=== PATIENT | male | born 1955 | race Caucasian/White ===

== ENCOUNTER 2020-04-03 09:54 | Outpatient (REF) | payer MEDICARE, SELFPAY ==
--- NOTE | 2020-04-03 10:06 | US_ITS ---
EXAMINATION: US ABDOMEN COMPLETE CLINICAL INFORMATION: Liver disease unspecified. Follow-up liver lesion from CT. Per patient, [facility] at [facility] 1 month ago. COMPARISON: None TECHNIQUE: Real-time imaging of the abdominal viscera. FINDINGS: Evaluation limited by patient body habitus. PANCREAS: The visualized head and body of the pancreas appears unremarkable. Remainder of the pancreas is obscured by bowel gas. ABDOMINAL AORTA: The proximal, mid, and distal segments are normal in caliber. INFERIOR VENA CAVA: Visualized portions are normal. LIVER: There is an anechoic avascular lesion in the right anterolateral liver dome measuring 1.2 x 1.2 x 1.4 cm. Normal parenchymal echogenicity. There is no intrahepatic biliary duct dilatation seen. GALLBLADDER: Normal. The gallbladder is physiologically distended without evidence of stones, sludge, polyps, wall thickening or pericholecystic fluid. COMMON BILE DUCT: Normal in caliber measuring 0.4 cm in diameter. RIGHT KIDNEY: Multiple renal cysts. Lower pole 2 cm cyst; Lower pole 1.5 cm cyst; Midpole 1.9 cm cyst. These are anechoic in nature. No hydronephrosis. No renal calculi. The kidney measures 13.3 cm in maximum dimension. LEFT KIDNEY: Upper pole 2.2 cm anechoic avascular cyst. Upper pole 1.6 cm anechoic avascular cyst. No hydronephrosis. No renal calculi . The kidney measures 13.2 cm in maximum dimension. SPLEEN: Normal. The spleen measures 13.4 cm in maximum dimension. FREE FLUID: None. US/US abdomen complete IMPRESSION: 1. Anechoic avascular cystic-appearing lesion in the right lobe measuring 1.2 x 1.2 x 1.4 cm. Recommend correlation to prior CT. Recommend clinical correlation and management. Confirmation of the cystic nature can be obtained with MRI. Alternately, recommend follow-up ultrasound for reassessment. 2. Multiple bilateral renal cysts as detailed above. No hydronephrosis. No calculi seen.
== END 2020-04-03 09:55 | disposition home or self-care (01) ==
LOC: HO.HMGCX 09:54
PROVIDERS: PCP Internal Medicine; Visit Provider Internal Medicine
DX: K76.9 Liver disease, unspecified (principal)
CPT/HCPCS: 76700

== ENCOUNTER 2020-04-12 08:21 | Outpatient (REF) | payer MEDICARE, SELFPAY ==
--- NOTE | 2020-04-12 08:43 | MR_ITS ---
EXAMINATION: MR ABDOMEN WITHOUT AND WITH CONTRAST CLINICAL INFORMATION: Followup liver lesion. COMPARISON: Previous abdominal ultrasound March 2020 TECHNIQUE: MR abdomen was performed without and with use of 10 mL intravenous Gadavist gadolinium contrast. Postcontrast images are performed in multiphase dynamic sequences. Imaging was performed in 3 planes. FINDINGS: LUNG BASES: The visualized lung bases are unremarkable. LIVER, GALLBLADDER, AND BILIARY TREE: The liver is normal in size, smooth in contour, and normal in signal. There are innumerable liver lesions that are dark on T1, bright on T2 sequences and demonstrate no evidence of enhancement compatible with simple-appearing liver cysts, the largest measuring 1 cm in the medial segment of the left lobe of the liver. There is a 1.5 x 1.8 x 1.5 cm lesion high in the dome of the right lobe. This is high signal on T1- and T2-weighted sequences and demonstrates no evidence of enhancement. This is suggestive of a complex proteinaceous or hemorrhagic cyst. This corresponds to lesion seen by ultrasound. The gallbladder is unremarkable. There is no biliary duct dilatation. PANCREAS: Unremarkable. SPLEEN: Normal. ADRENAL GLANDS: Normal. KIDNEYS AND URETERS: There are bilateral renal cysts. The kidneys are otherwise unremarkable. GASTROINTESTINAL TRACT: There is diverticulosis of the colon. No ascites or fluid collection. ABDOMINAL WALL: There is an upper midline or subxiphoid hernia containing fat. There is a small umbilical hernia containing fat. LYMPH NODES: No lymphadenopathy. VASCULAR: Unremarkable. OSSEOUS STRUCTURES: There are degenerative changes of the spine. There are median sternotomy wires. MR/MR abdomen wo/w con IMPRESSION: Multiple simple liver cysts. 1.5 x 1.8 x 1.5 cm probable complex proteinaceous or hemorrhagic cyst high in the dome of the right lobe of the liver corresponding to lesion seen by ultrasound. Followup imaging in 6 months to ensure stability recommended. Bilateral renal cysts. Diverticulosis of the colon. Upper midline ventral or subxiphoid hernia containing fat.
[2020-04-12 09:21] LABS: Blood Urea Nitrogen 20 mg/dL (9-16); Estimated Glomerular Filt Rate > 60
== END 2020-04-12 08:22 | disposition home or self-care (01) ==
LOC: HO.MRI 08:21
PROVIDERS: PCP Internal Medicine; Visit Provider Internal Medicine
DX: K76.9 Liver disease, unspecified (principal); E78.5 Hyperlipidemia, unspecified; R73.9 Hyperglycemia, unspecified; I10 Essential (primary) hypertension
CPT/HCPCS: 74183; 82565; 84520; A9585

== ENCOUNTER → 2022-04-21 16:07 | Outpatient (REF) | payer MEDICARE, SELFPAY | LOC: HO.SL 16:07 | PROVIDERS: PCP Internal Medicine; Visit Provider Internal Medicine | DX: G47.33 Obstructive sleep apnea (adult) (pediatric) (principal) | CPT/HCPCS: 95806 ==

== ENCOUNTER 2022-12-17 08:21 | Outpatient (AMB) | payer MEDICARE, SELFPAY ==
--- NOTE | 2022-12-17 08:31 | A.OFFPC_ITS ---
Vital Signs 12/17/22 08:32 Height 5 ft 7 in Weight 285 lb BMI 44.6 BP 136/74 Blood Pressure Location Lt brachial Position Sitting Pulse 52 Pulse Source Pulse Oximeter Pulse Oximetry (%) 97 Oxygen Delivery Method Room Air Intake Visit Reasons: 4 month follow up Intake Note: Pt is here today for 4 months follow up visit. Allergies No Known Allergies Allergy (Verified 12/17/22 08:33) Tobacco use date assessed: 12/17/22 Fall risk assessment: No Falls in past year Last assessed Fall Risk: 12/17/22 Dental Screening Dental Screen Date: 12/17/22 Did you have a dental visit in the last 12 months?: No Did you have a dental problem in the last 6 months where you did not have access to dental care?: No Was dental information given to patient?: Patient declined HPI 4 month follow up HPI Details Pt presents for f/u HTN, hyperlipid stable for meds. [facility] Medical History Annual physical exam Ascending aorta dilation HTN (hypertension) Hyperglycemia Hyperlipidemia Liver lesion, right lobe Lower extremity edema Normal colonoscopy Obesity DAQUAN on CPAP Osteoarthritis of right knee Surgical History H/O colonoscopy No pertinent past surgical history Status post aortic valve replacement with bioprosthetic valve Family History Father Kidney disease Heart problem Diabetes mellitus Mother No problems noted. Social History Housing: House Alcohol intake: current Alcohol intake frequency: a few times a week Patient Tobacco Use Status: Never used Tobacco e-Cigarette/Vaping Use: Never Used service: No Current occupational status: employed Cognitive needs: No Hearing needs: No Vision needs: Yes Questionnaire Thrive Questionnaire Date Thrive assessed: 05/01/22 AUDIT C Alcohol Use Questionnaire (AUDIT-C) 1. How often do you have a drink containing alcohol?: 2-3 times a week 2. How many drinks containing alcohol do you have on a typical day when you are drinking?: 1 or 2 3. How often do you have six or more drinks on one occasion?: Never Total Score: 3 CATALINA-7 AMB Questionnaire CATALINA-7 Date CATALINA - 7 assessed: 05/01/22 Source: Developed by Drs. Chao Rodriguez, Deanna Tamayo, Luis Angel Lehman and colleagues, with an educational karla from [employer]. Review of Systems Const All systems reviewed & are unremarkable except as noted in HPI and below Reports no additional complaints Eyes Reports no additional complaints ENT Reports no additional complaints Card Reports no additional complaints Resp Reports no additional complaints GI Reports no additional complaints Reports no additional complaints Physical exam (Primary Care) Vital Signs: Last Vital Signs Pulse 52 12/17/22 08:32 BP 136/74 12/17/22 08:32 Pulse Ox 97 12/17/22 08:32 Oxygen Delivery Method Room Air 12/17/22 08:32 BMI result Body Mass Index 44.6 Tobacco/Smoking Status: Tobacco use Status Tobacco use date assessed 12/17/22 12/17/22 08:37 Patient Tobacco Use Status Never used Tobacco 12/17/22 08:37 e-Cigarette/Vaping Use Never Used 12/17/22 08:37 Thrive Assessment: Date of Thrive Assessment Date Thrive assessed 05/01/22 12/17/22 08:37 Const General: no acute distress HENMT Head: Yes normal to inspection Ears: hearing grossly normal bilaterally Eyes General: appearance normal, both eyes and all related structures Neck Neck: Yes no lymphadenopathy and Yes supple Cardio Rhythm: regular rhythm Heart sounds: S1 normal heart sound present and S2 normal heart sound present GI Inspection: Yes normal to inspection Palpation (GI): Soft to palpation Percussion: Yes normal to percussion Auscultation: normal bowel sounds Assessment and Plan Assessment & Plan (1) Anemia: Code(s): D64.9 - Anemia, unspecified Plan: For slight anemia iron studies and B12 level will be checked today. Patient is due for colonoscopy next year (2) Hyperlipidemia: Code(s): E78.5 - Hyperlipidemia, unspecified Plan: Continue statin (3) Hyperglycemia: Code(s): R73.9 - Hyperglycemia, unspecified Plan: Continue ADA diet increase physical activity weight loss discussed with the patient (4) HTN (hypertension): Code(s): I10 - Essential (primary) hypertension Plan: Continue current medications follow-up in 6 months Orders: Orders Vitamin B12 and Folate Today D64.9 - Anemia, unspecified IRON PROFILE Today D64.9 - Anemia, unspecified Comprehensive [place]. Panel Fast 6 Months D64.9 - Anemia, unspecified, E78.5 - Hyperlipidemia, unspecified, I10 - Essential (primary) hypertension, R73.9 - Hyperglycemia, unspecified Lipid Panel 6 Months D64.9 - Anemia, unspecified, E78.5 - Hyperlipidemia, unspecified, I10 - Essential (primary) hypertension, R73.9 - Hyperglycemia, unspecified Complete Blood Count Auto Diff 6 Months D64.9 - Anemia, unspecified, E78.5 - Hyperlipidemia, unspecified, I10 - Essential (primary) hypertension, R73.9 - Hyp erglycemia, unspecified Complete Blood Count Man Dif Today D64.9 - Anemia, unspecified Coding Level of Care Code Est Pt Level 4 (92669) Diagnoses Anemia D64.9 Hyperlipidemia E78.5 Hyperglycemia R73.9 HTN (hypertension) I10
[2022-12-17 08:32] VITALS: BP 136/74; PULSE 52; O2SAT 97; BMI 44.6
== END 2022-12-17 09:56 | disposition home or self-care (01) ==
PROVIDERS: Visit Provider Internal Medicine
DX: D64.9 Anemia, unspecified (principal); E78.5 Hyperlipidemia, unspecified; R73.9 Hyperglycemia, unspecified; I10 Essential (primary) hypertension
CPT/HCPCS: 99214

== ENCOUNTER 2022-12-17 09:14 | Outpatient (REF) | payer MEDICARE, SELFPAY ==
[2022-12-17 12:08] LABS: Baso%MD 0.4 %; Hematocrit 41.8 % (42.0-52.0); Hemoglobin 14.2 g/dl (14.0-18.0); Lymph%MD 36.6 %; Mean Corpuscular Hemoglobin 30.7 pg (27.0-33.0); Mean Corpuscular Volume 90.3 fL (80.0-98.0); Mean Platelet Volume 10.6 fL (9.4-12.4); Mono%MD 6.5 %; Neut%MD 54.5 %; Platelet Count 167 X10*3/uL (160-400); Red Blood Count 4.63 X10*6/uL (4.60-5.80); Red Cell Distribution Width 12.8 % (11.0-16.0); White Blood Count 5.1 X10*3/uL (4.8-10.8)
[2022-12-17 12:09] LABS: Hematocrit 41.8 % (42.0-52.0); Hemoglobin 14.3 g/dl (14.0-18.0); Mean Corpuscular HGB Conc 34.2 g/dl (31.0-36.0); Mean Corpuscular Hemoglobin 31.1 pg (27.0-33.0); Mean Corpuscular Volume 90.9 fL (80.0-98.0); Mean Platelet Volume 10.8 fL (9.4-12.4); Platelet Count 164 X10*3/uL (160-400); Red Cell Distribution Width 12.9 % (11.0-16.0); White Blood Count 5.2 X10*3/uL (4.8-10.8)
[2022-12-17 12:59] LABS: Alanine Aminotransferase 12 U/L (0-40); Albumin Level 4.3 g/dL (3.5-5.0); Alkaline Phosphatase 61 U/L (39-117); Anion Gap 15 (12-20); Aspartate Amino Transferase 18 U/L (5-37); Bilirubin Total 0.7 mg/dL (0.0-1.0); Blood Urea Nitrogen 23 mg/dL (9-16); Calcium 9.2 mg/dL (8.4-10.2); Carbon Dioxide 24 mmol/L (22-29); Chloride 105 mmol/L (96-108); Cholesterol 150 mg/dL; Estimated Glomerular Filt Rate > 60; Glucose Fasting 105 mg/dL (60-99); HDL Cholesterol 51 mg/dL; Iron 100 mcg/dL (45-160); LDL Cholesterol Calculated 88 mg/dl; Percent Iron Saturation 34 % (15-50); Potassium 4.7 mmol/L (3.3-5.1); Sodium 139 mmol/L (135-145); Total Iron Binding Capacity 296 mcg/dL (228-428); Total Protein 7.3 g/dL (6.5-8.0); Triglycerides 56 mg/dL; Unsaturated Iron Binding 196 ug/dL
[2022-12-17 13:02] LABS: Prostate Specific Antigen Scr 1.58 ng/mL (<0.05-4.0)
[2022-12-17 13:03] LABS: Folate 13.6 ng/mL (> or = 4.0); Vitamin B12 602 pg/mL (200-900)
[2022-12-17 13:42] LABS: Band Neutrophils Percent 0 % (3-5); Basophils Abs Manual 0.1 X10*3/uL (0.0-0.2); Basophils Percent Manual 1 % (0-2); Eosinophils Absolute Manual 0.3 X10*3/uL (0.0-0.4); Eosinophils Percent Manual 5 % (0-4); Lymphocytes Absolute Manual 1.5 X10*3/uL (1.2-4.9); Lymphocytes Percent Manual 30 % (20-40); Monocytes Absolute Manual 0.2 X10*3/uL (0.1-1.2); Monocytes Percent Manual 4 % (2-11); Neutrophils Absolute Manual 3.1 X10*3/uL (2.0-8.3); Neutrophils Percent Manual 60 % (45-73); Platelet Estimate NORMAL (NORMAL); Platelet Morphology Comment NORMAL; RBC Morphology NORMAL
== END 2022-12-17 09:15 | disposition home or self-care (01) ==
LOC: HO.HMGCLDS 09:14
PROVIDERS: PCP Internal Medicine; Visit Provider Internal Medicine
DX: Z12.5 Encounter for screening for malignant neoplasm of prostate (principal); I10 Essential (primary) hypertension; R73.9 Hyperglycemia, unspecified; D64.9 Anemia, unspecified; E78.5 Hyperlipidemia, unspecified
CPT/HCPCS: 36415; 80053; 80061; 82607; 82746; 83540; 84153; 85007; 85025; 85027

== ENCOUNTER 2023-06-21 08:54 | Outpatient (AMB) | payer MEDICARE, SELFPAY ==
[2023-06-21 08:55] VITALS: BP 120/76; PULSE 58; O2SAT 97; BMI 44.8
--- NOTE | 2023-06-21 08:55 | MHC.PC.OV ---
Vital Signs 06/21/23 08:55 Height 5 ft 7 in Weight 286 lb BMI 44.8 BP 120/76 Blood Pressure Location Lt brachial Position Sitting Pulse 58 Pulse Source Pulse Oximeter Pulse Oximetry (%) 97 Oxygen Delivery Method Room Air Intake Visit Reasons: 6 Month follow up Intake Note: Pt is here today for 6 months follow up visit on labs. Allergies carvedilol [From Coreg] Adverse Reaction (Intermediate, Verified 06/21/23 09:38) bradycardia Tobacco use date assessed: 06/21/23 Fall risk assessment: No Falls in past year Last assessed Fall Risk: 06/21/23 Dental Screening Dental Screen Date: 06/21/23 Did you have a dental visit in the last 12 months?: No Did you have a dental problem in the last 6 months where you did not have access to dental care?: No Was dental information given to patient?: Patient declined HPI 6 Month follow up HPI Details Patient presents for the follow-up of hypertension hyperlipidemia obstructive sleep apnea on CPAP patient has stopped taking carvedilol as advised by avionics mechanic because of bradycardia. Patient denies palpitations dizziness loss of consciousness. [facility] Medical History Annual physical exam Osteoarthritis of right knee Ascending aorta dilation Normal colonoscopy Hyperglycemia HTN (hypertension) Liver lesion, right lobe DAQUAN on CPAP Lower extremity edema Obesity Hyperlipidemia Surgical History H/O colonoscopy Status post aortic valve replacement with bioprosthetic valve No pertinent past surgical history Family History Father Kidney disease Heart problem Diabetes mellitus Mother No problems noted. Social History Housing: House Alcohol intake: current Alcohol intake frequency: a few times a week Patient Tobacco Use Status: Never used Tobacco e-Cigarette/Vaping Use: Never Used service: No Current occupational status: employed Cognitive needs: No Hearing needs: No Vision needs: Yes Questionnaire Thrive Questionnaire Date Thrive assessed: 05/01/22 AUDIT C Alcohol Use Questionnaire (AUDIT-C) 1. How often do you have a drink containing alcohol?: 2-3 times a week 2. How many drinks containing alcohol do you have on a typical day when you are drinking?: 1 or 2 3. How often do you have six or more drinks on one occasion?: Never Total Score: 3 CATALINA-7 AMB Questionnaire CATALINA-7 Date CATALINA - 7 assessed: 05/01/22 Feeling nervous, anxious, or on edge: 1 = Several days Not being able to stop or control worryin = Not at all Worrying too much about different things: 1 = Several days Trouble relaxin = Not at all Being so restless that it is hard to sit still: 0 = Not at all Becoming easily annoyed or irritable: 1 = Several days Feeling afraid as if something awful might happen: 0 = Not at all Total CATALINA-7 score (0-4 normal; 5-9 mild; 10-14 moderate; 15-21 severe): 3 Source: Developed by Drs. Chao Rodriguez, Deanna Tamayo, Luis Angel Lehman and colleagues, with an educational karla from [employer]. Review of Systems Const All systems reviewed & are unremarkable except as noted in HPI and below Reports no additional complaints Eyes Reports no additional complaints ENT Reports no additional complaints Card Reports no additional complaints Resp Reports no additional complaints GI Reports no additional complaints Reports no additional complaints Physical exam (Primary Care) Vital Signs: Last Vital Signs Pulse 58 06/21/23 08:55 BP 140/76 H 06/21/23 08:55 Pulse Ox 97 06/21/23 08:55 Oxygen Delivery Method Room Air 06/21/23 08:55 BMI result Body Mass Index 44.8 Tobacco/Smoking Status: Tobacco use Status Tobacco use date assessed 06/21/23 06/21/23 09:06 Patient Tobacco Use Status Never used Tobacco 06/21/23 09:06 e-Cigarette/Vaping Use Never Used 06/21/23 08:55 Thrive Assessment: Date of Thrive Assessment Date Thrive assessed 05/01/22 06/21/23 08:55 Const General: no acute distress HENMT Head: Yes normal to inspection Ears: hearing grossly normal bilaterally Face and sinus: Yes normal facial exam Throat: Yes posterior oropharynx normal Eyes General: appearance normal, both eyes and all related structures Neck Neck: Yes no lymphadenopathy and Yes supple Resp Effort & Inspection: normal respiratory effort Cardio Rhythm: regular rhythm Heart sounds: S1 normal heart sound present and S2 normal heart sound present GI Inspection: Yes normal to inspection Palpation (GI): Soft to palpation Percussion: Yes normal to percussion Auscultation: normal bowel sounds Assessment and Plan Assessment & Plan (1) DAQUAN on CPAP: Comment: Sleep study showed moderate to severe obstructive sleep apnea 04/14. Code(s): G47.33 - Obstructive sleep apnea (adult) (pediatric); Z99.89 - Dependence on other enabling machines and devices (2) Ascending aorta dilation: Comment: 4.0 cm, Echo 07/2019, f/u PVC Code(s): I77.810 - Thoracic aortic ectasia (3) Hyperlipidemia: Code(s): E78.5 - Hyperlipidemia, unspecified Plan: Continue statin (4) HTN (hypertension): Code(s): I10 - Essential (primary) hypertension Plan: Continue Valsartan, increase exercise weight loss discussed with the patient follow-up in 3 months Coding Level of Care Code Est Pt Level 4 (21672) Diagnoses DAQUAN on CPAP G47.33; Z99.89 Ascending aorta dilation I77.810 Hyperlipidemia E78.5 HTN (hypertension) I10
== END 2023-06-21 09:44 | disposition home or self-care (01) ==
PROVIDERS: PCP Internal Medicine; Visit Provider Internal Medicine
DX: G47.33 Obstructive sleep apnea (adult) (pediatric) (principal); Z99.89 Dependence on other enabling machines and devices; I77.810 Thoracic aortic ectasia; E78.5 Hyperlipidemia, unspecified; I10 Essential (primary) hypertension
CPT/HCPCS: 99214

== ENCOUNTER 2023-07-05 08:48 | Outpatient (AMB) | payer MEDICARE, SELFPAY ==
--- NOTE | 2023-07-05 08:51 | A.OFFVIS_ITS ---
Intake Vital Signs 07/05/23 08:54 Height 5 ft 7 in Weight 285 lb BMI 44.6 BP 142/74 H Blood Pressure Location Lt brachial Position Sitting Pulse 57 Pulse Source Pulse Oximeter Pulse Oximetry (%) 98 Oxygen Delivery Method Room Air Intake Visit Reasons: swv Intake Note: Pt is here today for AWV. Allergies carvedilol [From Coreg] Adverse Reaction (Intermediate, Verified 07/05/23 08:59) bradycardia Medication List - Last Reconciled 07/05/23 by Adia Medina MD atorvastatin 40 mg PO BEDTIME CPAP (CPAP Machine/Device) auto pap 6-16 cm CPAP (CPAP Machine/Device) auto pap with presure 6-16 cm flu vacc [id number] 6mos up(PF) mL IM furosemide 40 mg PO QAM [id number] mcg (Centrum Minis Men 50 Plus) tabs PO omega 5-amt-guo-fish oil 1,200 (144-216) mg (Fish Oil) caps PO omeprazole 20 mg PO QAM scopolamine base 1 patch transdermal Q3D PRN sertraline 75 mg (1.5 x 50 mg) PO DAILY valsartan 160 mg PO DAILY HPI swv HPI Details Patient presents for wellness visitInitiated the conversation about Advanced Directives. Advanced Directives help? patients prepare for current and future decisions about their medical treatment? and place of care. Discussed with patient that it is a process where a patients? current condition and prognosis are reviewed, their wishes for information? regarding their illness are elicited, and likely medical dilemmas are presented? and options discussed. The form can be amended as needed, reviewed yearly and? make changes as needed IPPE/AWV ? year old presents? for her ? Annual? Wellness Visit, initial visit.? Medical / Social History Reviewed? Past Medical History ?Yes? . ? [place]? of Care / Care Team list updated ?Yes . ? Surgical/Hospitalization? History ?Yes . ? Current Medications? (including OTC and supplements) ?Yes . ? Family History ?Yes? . ? Tobacco? Control form ?Yes . ? AUDIT-C (Alcohol use) form? ?Yes . ? Illicit drug use in Social? History ?Yes . ? Current diagnosis of? depression? ?No ? Appropriate PHQ2/PHQ9? completed ?Yes . ? Data entered by ?Medical? Hotel Reservation Agent and reviewed by provider ? Fall Risk ? Fall? History? Have you had any falls with? injury in the past year? ?No . ? Have you had two or more? falls in the past year? ?No . ? Fall Risk Assessment: ?No? falls in the past year . ? HRA filled out by? the patient, reviewed by Provider and scanned. ? IPPE/AWV ? Balance? [place]? ?Yes . ? Tandem? walk ?Yes . ? Walk and? Turn ?Yes . ? Rise from? sit to stand ?Yes . ?Vision? Corrective? lens ?Yes ? Vision? screen ? Up-to-date, has an appointment [] for vision? screening and glaucoma screening ?Hearing? Whisper? test ?pass .? Initiated the conversation about Advanced Directives. Advanced Directives help? patients prepare for current and future decisions about their medical treatment? and place of care. Discussed with patient that it is a process where a patients? current condition and prognosis are reviewed, their wishes for information? regarding their illness are elicited, and likely medical dilemmas are presented? and options discussed. The form can be amended as needed, reviewed yearly and? make changes as needed Written? Plan?Completed. See Patient? Documents. [facility] Medical History Annual physical exam Osteoarthritis of right knee Ascending aorta dilation Normal colonoscopy Hyperglycemia HTN (hypertension) Liver lesion, right lobe DAQUAN on CPAP Lower extremity edema Obesity Hyperlipidemia Surgical History H/O colonoscopy Status post aortic valve replacement with bioprosthetic valve No pertinent past surgical history Family History Father Kidney disease Heart problem Diabetes mellitus Mother No problems noted. Social History Housing: House Alcohol intake: current Alcohol intake frequency: a few times a week Patient Tobacco Use Status: Never used Tobacco e-Cigarette/Vaping Use: Never Used service: No Current occupational status: employed Cognitive needs: No Hearing needs: No Vision needs: Yes Questionnaire Medicare Wellness Checkup [age] What gender do you identify with?: male During the past 4 weeks, how much have you been bothered by emotional problems such as feeling anxious, depressed, irritable, sad or downhearted, and blue?: not at all During the past 4 weeks, has your physical & emotional health limited your social activities with family, friends, neighbors, or groups?: not at all During the past 4 weeks, how much bodily pain have you generally had?: very mild pain During the past 4 weeks, was someone available to help you if you needed & wanted help?: yes, as much as I wanted During the past 4 weeks, what was the hardest physical activity you could do for at least 2 minutes?: moderate Can you get to places out of walking distance without help? (For eg., can you travel alone on buses, taxis or drive your car?): Yes Can you go shopping for groceries or clothes without someone's help?: Yes Can you prepare your own meals?: Yes Can you do your housework without help?: Yes Because of any health problems, do you need the help of another person with your personal care needs such as eating, bathing, dressing or getting around the h ouse?: No Can you handle your own money without help?: Yes During the past 4 weeks, how would you rate your health in general?: good During the past 4 weeks how have things been going for you?: pretty well Are you having difficulties driving your car?: no Do you always fasten your seat belt when you are in a car?: yes, usually During past 4 weeks, have you been bothered by the following: never: Sexual problems?, Trouble eating well?, Teeth or denture problems? and Problems using the telephone? and seldom: Falling or dizzy when standing up and Tiredness or fatigue? Have you fallen 2 or more times in the past year?: No Are you afraid of falling?: No Are you a smoker?: no During the past 4 weeks, how many drinks of wine, beer, or other alcoholic beverages did you have?: 2-5 drinks per week Do you exercise for about 20 minutes 3 or more times a week?: yes, most of the time Have you been given information to help with the following?: no: Hazards in your house that might hurt you? and no: Keeping track of your medications? How often do you have trouble taking medicines the way you have been told to take them?: I always take medicine as prescribed How confident are you that you can control & manage most of your health problems?: very confident What is your race?: White Mini Mental State Exam (MMSE) Orientation What is the (year) (season) (date) (day) (month)?: year, season, date, day and month Where are we (state) (county) (town or city) (hospital) (floor)?: state, county, town or city, hospital/clinic and floor Registration Name of 3 unrelated objects clearly and slowly, then ask patient to repeat all 3 of them. (1st repeat determines score. Make sure they can repeat all three): object 1, object 2 and object 3 Attention & Calculation (CHOOSE ONE) Spell WORLD backwards (DLROW): 5 letters Recall Ask patient to repeat the 3 items from question #3.: object 1, object 2 and object 3 Language Show patient a wristwatch & ask what it is. Repeat for pencil.: watch and pencil Ask the patient to repeat the phrase 'No ifs, ands, or buts' after you.: correct Ask the patient to 'take a piece of paper with their right hand' 'fold paper in half' 'place paper on floor': take paper in right hand, fold paper in half and place paper on floor Print the sentence 'CLOSE YOUR EYES' on a piece. If patient actually closes eyes then score.: followed written direction Give patient a blank piece of paper & ask to write a sentence. Score if it contains a noun & verb.: sentence contains subject and verb Score Score: 29 Activity of Daily Living Bathing - sponge bath, tub bath or shower: receives no assistance (gets in/out by self, if usual bathing means Dressing - getting clothes from closets & drawers, including inner/outer garments & fasteners.: gets clothes & gets completely dressed without help Toileting - going to the 'toilet room' for urine/bowel elimination & cleaning self/arranging clothes: goes to toilet room, cleans self, arranges clothes without help Transfer: moves in & out of bed and chair without help (may use support object) Continence: controls urination/bowel movements completely by self Feeding: feeds self without help Total Score: 0 Information obtained from: patient Using telephone: independent Traveling: independent Shopping: independent Preparing meals: independent Housework: independent Taking medicine: independent Managing money: independent PHQ-9 Over the last 2 weeks, how often have you been bothered by any of the following problems? 1. Little interest or pleasure in doing things: not at all 2. Feeling down, depressed, or hopeless: not at all 3. Trouble falling or staying asleep, or sleeping too much: not at all 4. Feeling tired or having little energy: several days 5. Poor appetite or overeating: not at all 6. Feeling bad about yourself - or that you are a failure or have let yourself or your family down: not at all 7. Trouble concentrating on things, such as reading the newspaper or watching television: not at all 8. Moving or speaking so slowly that other people could have noticed. Or the opposite - being so fidgety or restless that you have been moving around a lot more than usual: not at all 9. Thoughts that you would be better off or of hurting yourself in some way: not at all Total score: 1 Depression Screening Interpretation: Negative Depression Screening Done: Yes Source: Developed by Drs. Chao Rodriguez, Deanna Tamayo, Luis Angel Lehman and colleagues, with an educational karla from [employer]. Review of Systems Const All systems reviewed & are unremarkable except as noted in HPI and below Reports no additional complaints Eyes Reports no additional complaints ENT Reports no additional complaints Card Reports no additional complaints Resp Reports no additional complaints GI Reports no additional complaints Reports no additional complaints Musc Reports no additional complaints Physical Exam Vital Signs: Last Vital Signs Pulse 57 07/05/23 08:54 BP 142/74 H 07/05/23 08:54 Pulse Ox 98 07/05/23 08:54 Oxygen Delivery Method Room Air 07/05/23 08:54 BMI result Body Mass Index 44.6 Const General: no acute distress HEENT Head: Yes normal to inspection Ears: hearing grossly normal bilaterally Neck Neck: Yes no lymphadenopathy and Yes supple Resp Effort & Inspection: normal respiratory effort Auscultation: clear to auscultation bilaterally Cardio Rhythm: regular rhythm Heart sounds: S1 normal heart sound present and S2 normal heart sound present GI Inspection: Yes normal to inspection Palpation (GI): Soft to palpation Percussion: Yes normal to percussion Extrem General: Yes no clubbing, cyanosis or edema Assessment & Plan Assessment & Plan (1) HTN (hypertension): Code(s): I10 - Essential (primary) hypertension Plan: Add 80 mg of valsartan to 160 mg. Check BMP 1 week after starting the medication. Patient is going to [place] tomorrow for 1 week and will start the medication after he return. Low-sodium diet and regular physical activity discussed with the pt (2) DAQUAN on CPAP: Comment: Sleep study showed moderate to severe obstructive sleep apnea 04/14. Code(s): G47.33 - Obstructive sleep apnea (adult) (pediatric); Z99.89 - Dependence on other enabling machines and devices Plan: Continue Cpap (3) Normal colonoscopy: Comment: 05/2018 recheck 5 yrs, hx of polyps, Plan: Due for colonoscopy next May (4) Hyperlipidemia: Code(s): E78.5 - Hyperlipidemia, unspecified Plan: Continue statin (5) Annual physical exam: Code(s): Z00.00 - Encounter for general adult medical examination without abnormal findings Plan: Well-balanced diet regular physical activity weight loss discussed with the patient. Follow-up in 6 weeks Orders: Orders Basic Metabolic Panel 07/29/23 I10 - Essential (primary) hypertension Medications: New valsartan take with Valsartan 160 mg 80 mg PO DAILY 90 tabs 0RF Quality Reporting (2019) Depression/Bipolar (159/160/161/177) PHQ-9: Total score: 1 Coding Level of Care Code Medicare Subsequent (G0439) Diagnoses HTN (hypertension) I10 DAQUAN on CPAP G47.33; Z99.89 Normal colonoscopy Hyperlipidemia E78.5 Annual physical exam Z00.00 CPT Codes Advance Care Planning - Time spent: 1-15 minutes, not on file ([id number]) Advance Care Planning Advance Care Planning discussion: Exists, not on file Forms completed: Health Care Proxy Time spent: 1-15 minutes, not on file
[2023-07-05 08:54] VITALS: BP 142/74; PULSE 57; O2SAT 98; BMI 44.6
== END 2023-07-05 09:35 | disposition home or self-care (01) ==
PROVIDERS: PCP Internal Medicine; Visit Provider Internal Medicine
DX: I10 Essential (primary) hypertension (principal); G47.33 Obstructive sleep apnea (adult) (pediatric); Z99.89 Dependence on other enabling machines and devices; E78.5 Hyperlipidemia, unspecified; Z00.00 Encounter for general adult medical examination without abnormal findings
CPT/HCPCS: 1124F; G0439

== ENCOUNTER 2023-08-16 12:29 | Outpatient (AMB) | payer MEDICARE, SELFPAY ==
[2023-08-16 12:31] VITALS: BP 120/76; PULSE 55; O2SAT 97; BMI 44.0
--- NOTE | 2023-08-16 12:31 | A.OFFPC_ITS ---
Vital Signs 08/16/23 12:31 Height 5 ft 7 in Weight 281 lb BMI 44.0 BP 120/76 Blood Pressure Location Lt brachial Position Sitting Pulse 55 Pulse Source Pulse Oximeter Pulse Oximetry (%) 97 Oxygen Delivery Method Room Air Intake Visit Reasons: 6WK F/U Intake Note: Pt is here today for a 6 weeks follow up visit. Allergies carvedilol [From Coreg] Adverse Reaction (Intermediate, Verified 08/16/23 12:35) bradycardia Tobacco use date assessed: 08/16/23 Fall risk assessment: No Falls in past year Last assessed Fall Risk: 08/16/23 HPI 6WK F/U HPI Details Pt presents for HTN, hyperlipid, stable on meds. [facility] Medical History Annual physical exam Osteoarthritis of right knee Ascending aorta dilation Normal colonoscopy Hyperglycemia HTN (hypertension) Liver lesion, right lobe DAQUAN on CPAP Lower extremity edema Obesity Hyperlipidemia Surgical History H/O colonoscopy Status post aortic valve replacement with bioprosthetic valve No pertinent past surgical history Family History Father Kidney disease Heart problem Diabetes mellitus Mother No problems noted. Social History Housing: House Alcohol intake: current Alcohol intake frequency: a few times a week Patient Tobacco Use Status: Never used Tobacco e-Cigarette/Vaping Use: Never Used service: No Current occupational status: employed Cognitive needs: No Hearing needs: No Vision needs: Yes Questionnaire Thrive Questionnaire Date Thrive assessed: 05/01/22 CATALINA-7 AMB Questionnaire CATALINA-7 Date CATALINA - 7 assessed: 05/01/22 Source: Developed by Drs. Chao Rodriguez, Deanna Tamayo, Luis Angel Lehman and colleagues, with an educational karla from [employer]. Review of Systems Const All systems reviewed & are unremarkable except as noted in HPI and below Reports no additional complaints Eyes Reports no additional complaints ENT Reports no additional complaints Card Reports no additional complaints Resp Reports no additional complaints GI Reports no additional complaints Reports no additional complaints Physical exam (Primary Care) Vital Signs: Last Vital Signs Pulse 49 L 08/16/23 12:31 BP 120/76 08/16/23 12:31 Pulse Ox 97 08/16/23 12:31 Oxygen Delivery Method Room Air 08/16/23 12:31 BMI result Body Mass Index 44.0 Tobacco/Smoking Status: Tobacco use Status Tobacco use date assessed 08/16/23 08/16/23 12:38 Patient Tobacco Use Status Never used Tobacco 08/16/23 12:38 e-Cigarette/Vaping Use Never Used 08/16/23 12:33 Thrive Assessment: Date of Thrive Assessment Date Thrive assessed 05/01/22 08/16/23 12:33 Const General: no acute distress HENMT Head: Yes normal to inspection Mouth: Normal oral and palatal mucosa present Eyes General: appearance normal, both eyes and all related structures Neck Neck: Yes supple Resp Effort & Inspection: normal respiratory effort Auscultation: clear to auscultation bilaterally Cardio Rhythm: regular rhythm Heart sounds: S1 normal heart sound present and S2 normal heart sound present Assessment and Plan Assessment & Plan (1) HTN (hypertension): Code(s): I10 - Essential (primary) hypertension Plan: cont meds, f/u 6 months (2) Hyperglycemia: Code(s): R73.9 - Hyperglycemia, unspecified Plan: ADA diet, regular exercise, weight loss discussed (3) Hyperlipidemia: Code(s): E78.5 - Hyperlipidemia, unspecified Plan: cont statin Orders: Orders Comprehensive [place]. Panel Fast 6 Months E78.5 - Hyperlipidemia, unspecified, I10 - Essential (primary) hypertension, R73.9 - Hyperglycemia, unspecified Lipid Panel 6 Months E78.5 - Hyperlipidemia, unspecified, I10 - Essential (primary) hypertension, R73.9 - Hyperglycemia, unspecified Complete Blood Count Auto Diff 6 Months E78.5 - Hyperlipidemia, unspecified, I10 - Essential (primary) hypertension, R73.9 - Hyperglycemia, unspecified Medications: Refilled valsartan take with Valsartan 160 mg 80 mg PO DAILY 90 tabs 3RF valsartan 160 mg PO DAILY 90 tabs 3RF Coding Level of Care Code Est Pt Level 4 (71746) Diagnoses HTN (hypertension) I10 Hyperglycemia R73.9 Hyperlipidemia E78.5
== END 2023-08-16 13:05 | disposition home or self-care (01) ==
PROVIDERS: PCP Internal Medicine; Visit Provider Internal Medicine
DX: I10 Essential (primary) hypertension (principal); R73.9 Hyperglycemia, unspecified; E78.5 Hyperlipidemia, unspecified
CPT/HCPCS: 99214

== ENCOUNTER 2024-02-16 13:47 | Outpatient (AMB) | payer MEDICARE, SELFPAY ==
--- NOTE | 2024-02-16 13:56 | A.OFFPC_ITS ---
Vital Signs 02/16/24 13:57 Height 5 ft 7 in Weight 285 lb BMI 44.6 BP 134/82 Blood Pressure Location Lt brachial Position Sitting Pulse 65 Pulse Source Pulse Oximeter Intake Visit Reasons: 6 month follow up Intake Note: Pt is here today for 6 months follow up visit. Allergies carvedilol [From Coreg] Adverse Reaction (Intermediate, Verified 02/16/24 13:59) bradycardia Medication List - Last Reconciled 02/16/24 by Adia Medina MD atorvastatin 40 mg PO BEDTIME CPAP (CPAP Machine/Device) auto pap 6-16 cm CPAP (CPAP Machine/Device) auto pap with presure 6-16 cm flu vacc [id number] 6mos up(PF) mL IM furosemide 40 mg PO QAM [id number] 327-14-351-150 mcg (Centrum Minis Men 50 Plus) tabs PO omega 2-mls-oqi-fish oil 1,200 (144-216) mg (Fish Oil) caps PO omeprazole 20 mg PO QAM scopolamine base 1 patch transdermal Q3D PRN sertraline 75 mg (1.5 x 50 mg) PO DAILY valsartan 80 mg PO DAILY valsartan 160 mg PO DAILY Tobacco use date assessed: 02/16/24 Fall risk assessment: No Falls in past year Last assessed Fall Risk: 02/16/24 Dental Screening Dental Screen Date: 02/16/24 Did you have a dental visit in the last 12 months?: No Did you have a dental problem in the last 6 months where you did not have access to dental care?: No Was dental information given to patient?: Patient declined HPI 6 month follow up HPI Details Patient presents for the follow-up on hypertension hyperlipidemia chronic anxiety and GERD. [facility] Medical History Annual physical exam Osteoarthritis of right knee Ascending aorta dilation Normal colonoscopy Hyperglycemia HTN (hypertension) Liver lesion, right lobe DAQUAN on CPAP Lower extremity edema Obesity Hyperlipidemia Surgical History H/O colonoscopy Status post aortic valve replacement with bioprosthetic valve No pertinent past surgical history Family History Father Kidney disease Heart problem Diabetes mellitus Mother No problems noted. Social History Housing: House Alcohol intake: current Alcohol intake frequency: a few times a week Patient Tobacco Use Status: Never used Tobacco e-Cigarette/Vaping Use: Never Used service: No Current occupational status: employed Cognitive needs: No Hearing needs: No Vision needs: Yes Questionnaire PHQ-9 Over the last 2 weeks, how often have you been bothered by any of the following problems? 1. Little interest or pleasure in doing things: not at all 2. Feeling down, depressed, or hopeless: not at all 3. Trouble falling or staying asleep, or sleeping too much: not at all 4. Feeling tired or having little energy: not at all 5. Poor appetite or overeating: not at all 6. Feeling bad about yourself - or that you are a failure or have let yourself or your family down: not at all 7. Trouble concentrating on things, such as reading the newspaper or watching television: not at all 8. Moving or speaking so slowly that other people could have noticed. Or the opposite - being so fidgety or restless that you have been moving around a lot more than usual: not at all 9. Thoughts that you would be better off or of hurting yourself in some way: not at all Total score: 0 Depression Screening Interpretation: Negative Depression Screening Done: Yes 22109 - PHQ-9 Billing: Yes Source: Developed by Drs. Chao Rodriguez, Deanna Tamayo, Luis Angel Lehman and colleagues, with an educational karla from [employer]. Thrive Questionnaire Date Thrive assessed: 02/14/24 I am a: Patient What is your living situation today?: I have a steady place to live Within the past 12 months, did the food you bought not last and you didn't have the money to get more?: Never true Within the past 12 months, did you worry whether your food would run out before you got money to buy more?: Never true Do you have trouble paying for medicines?: No Do you have trouble getting transportation to medical appointments?: No Do you have trouble paying your heating and electricity bill?: No Do you have trouble taking care of your child, family member or friend?: No Do you have trouble with day-to-day activities such as bathing, preparing meals, shopping, managing finances, etc.?: No Are you interested in more education?: No Please select the resources that you would like help with: None Currently or been in a relationship where the following occur: No concerns reported THRIVE Score: 0 AUDIT C Alcohol Use Questionnaire (AUDIT-C) 1. How often do you have a drink containing alcohol?: 2-3 times a week 2. How many drinks containing alcohol do you have on a typical day when you are drinking?: 1 or 2 3. How often do you have six or more drinks on one occasion?: Less than monthly Total Score: 4 CATALINA-7 AMB Questionnaire CATALINA-7 Date CATALINA - 7 assessed: 05/01/22 Feeling nervous, anxious, or on edge: 1 = Several days Not being able to stop or control worryin = Not at all Worrying too much about different things: 0 = Not at all Trouble relaxin = Not at all Being so restless that it is hard to sit still: 0 = Not at all Becoming easily annoyed or irritable: 1 = Several days Feeling afraid as if something awful might happen: 0 = Not at all Total CATALINA-7 score (0-4 normal; 5-9 mild; 10-14 moderate; 15-21 severe): 2 Source: Developed by Drs. Chao Rodriguez, Deanna Tamayo, Luis Angel Lehman and colleagues, with an educational karla from [employer]. Review of Systems Const All systems reviewed & are unremarkable except as noted in HPI and below Eyes Reports no additional complaints ENT Reports no additional complaints Card Reports no additional complaints Resp Reports no additional complaints GI Reports no additional complaints Reports no additional complaints Physical exam (Primary Care) Vital Signs: Last Vital Signs Pulse 65 02/16/24 13:57 BP 134/82 02/16/24 13:57 BMI result Body Mass Index 44.6 Tobacco/Smoking Status: Tobacco use Status Tobacco use date assessed 02/16/24 02/16/24 14:04 Patient Tobacco Use Status Never used Tobacco 02/16/24 14:04 e-Cigarette/Vaping Use Never Used 02/16/24 13:57 PHQ-9: PHQ-9 Score PHQ-9: Total score 0 02/16/24 13:57 Depression Screening Interpretation: Negative Thrive Assessment: Date of Thrive Assessment Date Thrive assessed 02/14/24 02/16/24 13:57 Currently or been in a relationship where the following occur: No concerns reported Const General: no acute distress HENMT Ears: hearing grossly normal bilaterally Resp Effort & Inspection: normal respiratory effort Auscultation: clear to auscultation bilaterally Cardio Rhythm: regular rhythm Heart sounds: S1 normal heart sound present and S2 normal heart sound present GI Inspection: Yes normal to inspection Palpation (GI): Soft to palpation Assessment and Plan Assessment & Plan (1) H/O colonoscopy: Comment: 03/20/2013 repeat 05/2018, repeat 01/2024 1 polyp, Dr. Shultz Code(s): Z98.890 - Other specified postprocedural states (2) Hyperglycemia: Code(s): R73.9 - Hyperglycemia, unspecified Plan: Continue ADA diet increase physical activity weight loss discussed with the patient (3) HTN (hypertension): Code(s): I10 - Essential (primary) hypertension Plan: Increase valsartan to 320 mg. Continue low sodium diet regular physical activity and weight loss, check basic metabolic panel in 2 weeks (4) Hyperlipidemia: Code(s): E78.5 - Hyperlipidemia, unspecified Plan: Continue statin return for fasting labs before the physical Orders: Orders Lipid Panel 5 Months E78.5 - Hyperlipidemia, unspecified, I10 - Essential (primary) hypertension, R73.9 - Hyperglycemia, unspecified Complete Blood Count Auto Diff 5 Months E78.5 - Hyperlipidemia, unspecified, I10 - Essential (primary) hypertension, R73.9 - Hyperglycemia, unspecified Hemoglobin A1c 5 Months R73.9 - Hyperglycemia, unspecified Basic Metabolic Panel 2 Weeks I10 - Essential (primary) hypertension Comprehensive [place] Panel Fast 5 Months E78.5 - Hyperlipidemia, unspecified, I1 0 - Essential (primary) hypertension, R73.9 - Hyperglycemia, unspecified Medications: New valsartan 320 mg PO DAILY 90 tabs 0RF Refilled scopolamine base 1 patch transdermal Q3D PRN 4 ea 2RF nausea and vomiting Discontinued valsartan take with Valsartan 160 mg Discontinued Reason: Doctor's Order 80 mg PO DAILY 90 tabs 3RF valsartan Discontinued Reason: Doctor's Order 160 mg PO DAILY 90 tabs 3RF Coding Level of Care Code Est Pt Level 4 (66599) Diagnoses H/O colonoscopy Z98.890 Hyperglycemia R73.9 HTN (hypertension) I10 Hyperlipidemia E78.5
[2024-02-16 13:57] VITALS: BP 134/82; PULSE 65; BMI 44.6
== END 2024-02-16 14:56 | disposition home or self-care (01) ==
PROVIDERS: PCP Internal Medicine; Visit Provider Internal Medicine
DX: Z98.890 Other specified postprocedural states (principal); R73.9 Hyperglycemia, unspecified; I10 Essential (primary) hypertension; E78.5 Hyperlipidemia, unspecified

== ENCOUNTER → 2024-02-16 13:47 | Outpatient (BNVA) | payer MEDICARE, SELFPAY | PROVIDERS: PCP Internal Medicine; Visit Provider Internal Medicine | DX: R73.9 Hyperglycemia, unspecified (principal); I10 Essential (primary) hypertension; E78.5 Hyperlipidemia, unspecified; Z98.890 Other specified postprocedural states | CPT/HCPCS: 99212 ==

== ENCOUNTER 2024-04-17 13:40 | Outpatient (AMB) | payer MEDICARE, SELFPAY ==
[2024-04-17 13:41] VITALS: BP 136/66; PULSE 58; O2SAT 98; BMI 44.6
--- NOTE | 2024-04-17 13:41 | MHC.PC.OV ---
Vital Signs 04/17/24 13:41 Height 5 ft 7 in Weight 285 lb BMI 44.6 BP 136/66 Blood Pressure Location Rt brachial Position Sitting Pulse 58 Pulse Source Pulse Oximeter Pulse Oximetry (%) 98 Oxygen Delivery Method Room Air Intake Visit Reasons: 2 month follow up Intake Note: Pt is here today for 2 months follow up visit. Allergies carvedilol [From Coreg] Adverse Reaction (Intermediate, Verified 04/17/24 13:44) bradycardia Medication List - Last Reconciled 04/17/24 by Adia Medina MD aspirin 81 mg PO DAILY atorvastatin 40 mg PO BEDTIME CPAP (CPAP Machine/Device) auto pap 6-16 cm CPAP (CPAP Machine/Device) auto pap with presure 6-16 cm flu vacc [id number] 6mos up(PF) mL IM furosemide 40 mg PO QAM [id number] 723-29-013-150 mcg (Centrum Minis Men 50 Plus) tabs PO omega 8-apd-hum-fish oil 1,200 (144-216) mg (Fish Oil) caps PO omeprazole 20 mg PO QAM scopolamine base 1 patch transdermal Q3D PRN sertraline 75 mg (1.5 x 50 mg) PO DAILY valsartan 320 mg PO DAILY Tobacco use date assessed: 04/17/24 Fall risk assessment: No Falls in past year Last assessed Fall Risk: 04/17/24 Dental Screening Dental Screen Date: 02/16/24 HPI 2 month follow up HPI Details Pt presents for HTN, hyperlipid, obstructive sleep apnea on CPAP PFSH Medical History (Updated 04/17/24 @ 14:49 by Adia Medina MD) Annual physical exam Osteoarthritis of right knee Ascending aorta dilation Normal colonoscopy Hyperglycemia HTN (hypertension) Liver lesion, right lobe DAQUAN on CPAP Lower extremity edema Obesity Hyperlipidemia Surgical History H/O colonoscopy Status post aortic valve replacement with bioprosthetic valve No pertinent past surgical history Family History Father Kidney disease Heart problem Diabetes mellitus Mother No problems noted. Social History (Reviewed 04/17/24 @ 13:46 by Maggie Narvaez [facility]) Housing: House Alcohol intake: current Alcohol intake frequency: a few times a week Patient Tobacco Use Status: Never used Tobacco e-Cigarette/Vaping Use: Never Used service: No Current occupational status: employed Cognitive needs: No Hearing needs: No Vision needs: Yes Questionnaire Thrive Questionnaire Date Thrive assessed: 02/14/24 I am a: Patient What is your living situation today?: I have a steady place to live Within the past 12 months, did the food you bought not last and you didn't have the money to get more?: Never true Within the past 12 months, did you worry whether your food would run out before you got money to buy more?: Never true Do you have trouble paying for medicines?: No Do you have trouble getting transportation to medical appointments?: No Do you have trouble paying your heating and electricity bill?: No Do you have trouble taking care of your child, family member or friend?: No Do you have trouble with day-to-day activities such as bathing, preparing meals, shopping, managing finances, etc.?: No Are you currently unemployed and looking for a job?: No Are you interested in more education?: No Please select the resources that you would like help with: None Currently or been in a relationship where the following occur: No concerns reported THRIVE Score: 0 CATALINA-7 AMB Questionnaire CATALINA-7 Date CATALINA - 7 assessed: 05/01/22 Source: Developed by Drs. Chao Rodriguez, Deanna Tamayo, Luis Angel Lehman and colleagues, with an educational karla from [employer]. Review of Systems Const All systems reviewed & are unremarkable except as noted in HPI and below ENT Reports no additional complaints Card Reports no additional complaints Resp Reports no additional complaints GI Reports no additional complaints Reports no additional complaints Physical exam (Primary Care) Vital Signs: Last Vital Signs Pulse 58 04/17/24 13:41 BP 136/66 04/17/24 13:41 Pulse Ox 98 04/17/24 13:41 Oxygen Delivery Method Room Air 04/17/24 13:41 BMI result Body Mass Index 44.6 Tobacco/Smoking Status: Tobacco use Status Tobacco use date assessed 04/17/24 04/17/24 13:47 Patient Tobacco Use Status Never used Tobacco 04/17/24 13:47 e-Cigarette/Vaping Use Never Used 04/17/24 13:47 Thrive Assessment: Date of Thrive Assessment Date Thrive assessed 02/14/24 04/17/24 13:47 Currently or been in a relationship where the following occur: No concerns reported Const General: no acute distress HENMT Head: Yes normal to inspection Eyes General: appearance normal, both eyes and all related structures Neck Neck: Yes supple Resp Effort & Inspection: normal respiratory effort Auscultation: clear to auscultation bilaterally Cardio Rhythm: regular rhythm Heart sounds: S1 normal heart sound present and S2 normal heart sound present GI Inspection: Yes normal to inspection Palpation (GI): Soft to palpation Percussion: Yes normal to percussion Auscultation: normal bowel sounds Coding Level of Care Code Est Pt Level 4 (64889) Diagnoses Hyperglycemia R73.9 Hyperlipidemia E78.5 HTN (hypertension) I10 Ascending aorta dilation I77.810 Obesity E66.9 Assessment & Plan Assessment & Plan (1) Hyperglycemia: Code(s): R73.9 - Hyperglycemia, unspecified Category: Medical Plan: Continue ADA diet monitor A1c (2) Hyperlipidemia: Code(s): E78.5 - Hyperlipidemia, unspecified Category: Medical Plan: Continue statin (3) HTN (hypertension): Code(s): I10 - Essential (primary) hypertension Category: Medical Plan: Continue current medications (4) Ascending aorta dilation: Comment: 4.0 cm, Echo 07/2019, 2021 unchanged, Echo q [address] Samano f/u PVC Code(s): I77.810 - Thoracic aortic ectasia Category: Medical Plan: Establish with cardiology (5) Obesity: Code(s): E66.9 - Obesity, unspecified Category: Medical Plan: Decreasing caloric intake increasing physical activity discussed with the patient return for physical in 2 months Orders: Orders Lipid Panel 2 Months E78.5 - Hyperlipidemia, unspecified, I10 - Essential (primary) hypertension, R73.9 - Hyperglycemia, unspecified Comprehensive [place]. Panel Fast 2 Months E78.5 - Hyperlipidemia, unspecified, I10 - Essential (primary) hypertension, R73.9 - Hyperglycemia, unspecified Complete Blood Count Auto Diff 2 Months E78.5 - Hyperlipidemia, unspecified, I10 - Essential (primary) hypertension, R73.9 - Hyperglycemia, unspecified TSH reflex Free T4 2 Months E78.5 - Hyperlipidemia, unspecified, I10 - Essential (primary) hypertension, R73.9 - Hyperglycemia, unspecified PSA,Total (Free>4and<10) 2 Months E78.5 - Hyperlipidemia, unspecified, I10 - Essential (primary) hypertension, R73.9 - Hyperglycemia, unspecified Hemoglobin A1c 2 Months R73.9 - Hyperglycemia, unspecified Medications: New atorvastatin 40 mg PO BEDTIME 90 tabs 3RF Refilled furosemide 40 mg PO QAM 90 tabs 3RF sertraline 75 mg (1.5 x 50 mg) PO DAILY 135 tabs 3RF valsartan 320 mg PO DAILY 90 tabs 3RF
== END 2024-04-17 14:51 | disposition home or self-care (01) ==
PROVIDERS: PCP Internal Medicine; Visit Provider Internal Medicine
DX: R73.9 Hyperglycemia, unspecified (principal); I77.810 Thoracic aortic ectasia; E66.9 Obesity, unspecified; Z68.41 Body mass index [BMI] 40.0-44.9, adult; E78.5 Hyperlipidemia, unspecified; I10 Essential (primary) hypertension

== ENCOUNTER → 2024-04-17 13:40 | Outpatient (BNVA) | payer MEDICARE, SELFPAY | PROVIDERS: PCP Internal Medicine; Visit Provider Internal Medicine | DX: I10 Essential (primary) hypertension (principal); E78.5 Hyperlipidemia, unspecified; R73.9 Hyperglycemia, unspecified; I77.810 Thoracic aortic ectasia; E66.9 Obesity, unspecified | CPT/HCPCS: 99212 ==

== ENCOUNTER 2024-07-10 08:59 | Outpatient (AMB) | payer MEDICARE, SELFPAY ==
--- OUTSIDE RECORDS SUMMARY | 2024-07-10 09:02 | XMS_ITS | Encounter Summary ---
Author Organization [employer] 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 (CMS/HCC) Procedures Transthoracic echocardiogram (TTE) complete with PRN contrast, bubble, strain, and 3D order panel SC TTE W 2D IMAGE COMPLETE W DOPPLER ECHO & COLOR FLOW DOPPLER ECHO SC ANASTASIA 2D COMPLETE W/CONTRAST OR W & WO CONTRAST WITH DOPPLER Chuckie Samano MD [address] [place] [address] Phone: tel: fax: [facility] Referral ID Status Reason Start Date Expiration Date Visits Re quested Visits Authorized [id number] Closed 04/11/2024 04/11/2025 1 1 Encounter Details Date Type Department Care Team (Latest Contact Info) Description 06/15/2024 12:30 PM EST Ancillary Procedure [facility] [address] [place] [address] 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 (CMS/HCC) Social History Tobacco Use Types Packs/Day Years Used Date Smoking Tobacco: Never Smokeless Tobacco: Never Alcohol Use Standard Drinks/Week Comments Yes 0.8 (1 standard drink = 0.6 oz p ure alcohol) Sex and Gender Information Value Date Recorded Sex Assigned at Not on file Legal Sex Male 9:44 AM EST Gender Identity Not on file Sexual Orientation Not on file documented as of this encounter Last Filed Vital Signs Vital Sign Reading Time Taken Comments Blood Pressure 134/78 06/15/2024 1:22 PM EST Pulse - - Temperature - - Respiratory Rate - - Oxygen Saturation - - Inhaled Oxygen Concentration - - Weight 132 kg (290 lb) 06/15/2024 1:22 PM EST Height 167.6 cm (5' 6 ) 06/15/2024 1:22 PM EST Body Mass Index 46.81 06/15/2024 1:22 PM EST documented in this encounter Plan of Treatment Upcoming Encounters Date Type Department Care Team (Late st Contact Info) Description 12/13/2024 9:50 AM EDT Office Visit [facility] [address] [place] [address] Chuckie Samano MD [address] [place] [address] documented as of this encounter Procedures Procedure Name Priority Date/Time Associated Diagnosis Comments TRANSTHORACIC ECHOCARDIOGRAM (TTE) COMPLETE W/ CONTRAST Routine 06/15/2024 1:23 PM EST 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 (CMS/HCC) documented in this encounter Results * (ABNORMAL) TRANSTHORACIC ECHOCARDIOGRAM (TTE) COMPLETE W/ CONTRAST (06/15/2024 1:23 PM EST) Left Atrium Minor [place] 6.6 cm CV PACS Left Atrium Major [place] 7.2 cm CV PACS LA Area Sys (A2C) 31 cm2 CV PACS LA Area Sys (A4C) 31 cm2 CV PACS LA Volume (BP) 113 mL CV PACS RA Area 21.9 cm2 CV PACS RA 2D Volume 59 mL CV PACS AV Mean Gradient 10 mmHg CV PACS Ao VTI 53.0 cm CV PACS AV Peak Michael 2.2 m/s CV PACS AV Peak Gradient 20 mmHg CV PACS AV Area Continuity Equation 1.7 cm2 CV PACS AV Area Peak Velocity 1.4 cm2 CV PACS Ascending Aorta 4.0 cm CV PACS IVC Proximal 1.9 cm CV PACS IVSD 1.1(A) 0.6 - 1.0 cm CV PACS LVIDD 5.0 4.2 - 5.8 cm CV PACS LVIDS 2.8 2.5 - 4.0 cm CV PACS LVOT Diameter 1.8 cm CV PACS LVOT Mean Michael 0.9 m/s CV PACS LVOT Mean Grad 3 mmHg CV PACS LVOT Peak VTI 35.8 cm CV PACS LVOT Peak Michael 1.2 m/s CV PACS LVOT Peak Gradient 6 mmHg CV PACS LVPWD 1.2(A) 0.6 - 1.0 cm CV PACS MV E' Tissue Velocity Lateral 4 cm/s CV PACS MV E' Tissue Velocity Septal 4 cm/s CV PACS LVOT Area 2.5 cm2 CV PACS LVOT Stroke Volume 91 mL CV PACS MV Deceleration [place] 4.3 m/s2 CV PACS E Wave Deceleration Time 365(A) 119 - 242 ms CV PACS MV PHT 107 ms CV PACS MV Peak A Michael 1.15 m/s CV PACS MV Peak E Michael 1.55 m/s CV PACS MV Mean Gradient 4 mmHg CV PACS MV VTI 72.9 cm CV PACS Mitral Valve Max Velocity 1.7 m/s CV PACS MV Peak Gradient 11 mmHg CV PACS MV Area PHT 2.1 cm2 CV PACS MV Area Continuity Equation 1.2 cm2 CV PACS PV Acceleration Time 109 ms CV PACS RV Diastolic Basal Dimension 5.1(A) 2.5 - 4.1 cm CV PACS RV S' 10 cm/s CV PACS TAPSE 17 mm CV PACS TR Peak Velocity 2.78 m/s CV PACS TR Peak Gradient 31 mmHg CV PACS E/E' Ratio Septal 39 CV PACS E/E' Ratio Averaged 39 CV PACS Relative Wall Thickness ratio 0.48 CV PACS LVOT:AV VTI Index 0.68 CV PACS FS 44 % CV PACS LV Mass 2D 220 g CV PACS MV VTI:LVOT VTI ratio 2.0 CV PACS LVOT flow 229 mL/s CV PACS AV Velocity Ratio 0.55 CV PACS E/A Ratio 1.3 CV PACS E/E' Ratio Lateral 39 CV PACS BSA 2.47 m2 CV PACS LA Volume Index (BP) 48 mL/m2 CV PACS LVIDD Index 2.14 cm/m2 CV PACS LVIDS Index 1.20 cm/m2 CV PACS LV Mass Index 2D 94 50 - 102 g/m2 CV PACS LVOT Stroke Index 39 mL/m2 CV PACS RA 2D Volume Index 25 18 - 32 mL/m2 CV PACS CATALINA Index (VTI) 0.73 cm2/m2 CV PACS CATALINA Index (Pk Michael) 0.60 cm2/m2 CV PACS Ascending Aorta Index 1.71 cm/m2 CV PACS Right Ventricular Peak Systolic Pressure 39 mmHg CV PACS Est. RA Pressure 8 mmHg CV PACS Anatomical Region Laterality Modality Ultrasound Narrative 06/16/2024 3:01 PM EST ?Left ventricle cavity size is normal. Left ventricle mild concentric hypertrophy. Left ventricular systolic function is in the normal range with an ejection fraction of 55-60%. No regional LV wall motion abnormalities noted. There is Grade II (moderate) diastolic dysfunction. ?Right ventricle cavity is mildly enlarged. Right ventricular systolic function is normal. ?Left atrium cavity is moderately dilated. ?Size 23 Trifecta bioprosthetic aortic valve is well seated and functioning normally. The mean gradient through the valve is 10 mmHg. There is trace regurgitation. ?The right ventricular systolic pressure is elevated at 39 mmHg. ?No significant change compared to previous study of 05/12/2022. Left Ventricle Left ventricle cavity size is normal. There is mild concentric hypertrophy. Systolic function is normal with an ejection fraction of 60-65%. There are no regional LV wall motion abnormalities. There is Grade II (moderate) diastolic dysfunction. Right Ventricle Right ventricle was not well visualized. Right ventricle cavity is mildly dilated. Systolic function is normal. Left Atrium Left atrium cavity is moderately dilated. Right Atrium Right atrium cavity is normal. IVC/SVC RA pressures is estimated to be 8 mmHg (IVC diameter <21 mm and decreases <50% during inspiration). Mitral Valve The leaflets are thickened. There is annular calcification. There is trace to mild regurgitation. There is no evidence of mitral valve stenosis. Tricuspid Valve Tricuspid valve structure is normal. There is trace regurgitation. There is no evidence of tricuspid valve stenosis. The right ventricular systolic pressure is elevated at 39 mmHg. Aortic Valve Size 23 Trifecta bioprosthetic aortic valve is well seated and functioning normally. The mean gradient through the valve is 10 mmHg. There is trace regurgitation. There is no evidence of aortic valve stenosis. Pulmonic Valve Pulmonic valve structure is normal. There is mild pulmonic valve regurgitation. There is no evidence of pulmonic valve stenosis. Ascending Aorta Ascending aorta is 4.0 cm. Transverse aorta is not well visualized. Pericardium There is no pericardial effusion. Study Details Overall the study quality was technically difficult. Definity contrast was given to enhance imaging. 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
--- OUTSIDE RECORDS SUMMARY | 2024-07-10 09:03 | XMS_ITS | Encounter Summary ---
Author Organization [facility] Address [address] [place] [address] Care Team Providers Care Blasting Contract Man Name Role Phone Adia Medina MD Primary Care Provider [phone] Encounter Details Date Type Department Care Team (Late st Contact Info) Description 06/23/2024 11:20 AM EST Office Visit [facility] [address] [facility] [address] [place] [address] Chukcie Samano MD [address] [facility] [address] [place] [address] Aortic valve disorder (Primary Dx); Hypertension, unspecified type; PVC's (premature ventricular contractions) Social History Tobacco Use Types Packs/Day Years [...] Sign Reading Time Taken Comments Blood Pressure 142/60 06/23/2024 10:55 AM EST Pulse 53 06/23/2024 10:55 AM EST Temperature - - Respiratory Rate - - Oxygen Saturation 99% 06/23/2024 10:55 AM EST Inhaled Oxygen Concentration - - Weight 132 kg (292 lb) 06/23/2024 10:55 AM EST Height 167.6 cm (5' 6 ) 06/23/2024 10:55 AM EST Body Mass Index 47.13 06/23/2024 10:55 AM EST documented in this encounter Ordered Prescriptions Prescription Sig Dispense Quantity Refills Last Filled Start Date End Date magnesium, amino acid chelate, 133 mg tablet Take 1 tablet (133 mg total) by mouth 2 (two) times a day. 60 tablet 11 06/23/2024 06/23/2024 documented in this encounter Progress Notes * Chuckie Samano MD - 06/23/2024 11:20 AM ESTAssociated Problem(s): Aortic valve disorder Valve function appears normal by echocardiogram and physical exam. Will continue to monitor. Orders: Basic metabolic panel; Future * Chuckie Samano MD - 06/23/2024 11:20 AM ESTAssociated Problem(s): Hypertension Well-controlled. Orders: Lipid panel with reflex to direct LDL; Future * Chuckie Samano MD - 06/23/2024 11:20 AM ESTAssociated Problem(s): PVC's (premature ventricular contractions) PVC burden was quite high but he is asymptomatic. We not able to add a beta- pollo due to baselinebradycardia. Echocardiogram and stress test are reassuring. Will continue to monitor. Will repeat BMP and magnesium. * Chuckie Samano MD - 06/23/2024 11:20 AM EST PCP: Adia Medina MD HPI: The patient is a 69-year-old man with AVR, HTN, morbid obesity, DAQUAN and mild ascending aorta dilation. He underwent a tissue aortic valve replacement with #23 bovine prosthesis in 02/2014 for critical aortic valve stenosis without requiring CABG. He had an echo in April 2014 right after his surgery. The mean aortic gradient was 18 mmHg. The right ventricle is enlarged and hypokinetic. PA pressure was within normal range. Left ventricle was normal in size and systolic function. Echocardiogram in 02/2021 showed normal aortic prosthesis function with mean gradient of 18 mmHg, normal left ventricular size and systolic function, enlarged right ventricle and ascending aorta 4.1 cm. He had a CT of the chest for ascending aorta assessment in 2019 and aorta size measurement are quite similar to both methods. The echo in April 2022 showed normal left ventricular size and systolic function, abnormal left ventricular diastolic function, mildly enlarged right ventricle with normal systolic function, normal aortic valve function and elevated pulmonary arterial systolic pressure at 46 mmHg. He uses CPAP for DAQUAN. During a routine follow-up in March 2024, he was noted to have frequent PVCs. He otherwise did not have shortness of breath, chest discomfort, or dizziness. Subsequently, he had a Holter monitor which showed mild bradycardia with 10% PVCs. He underwent nuclear perfusion stress test which was reported to be mildly abnormal. I reviewed imaging myself and do not feel he had obvious perfusion abnormality. Echocardiogram shows normal left ventricular size and systolic function, mildly enlarged right ventricle with normal systolic function, mean aortic valve gradient 10 mmHg. He exercised almost daily on treadmill for 30 minutes each time at 3.1 mph without incline. He had no symptom with this level of exercise. ROS: All pertinent review of systems as stated in HPI otherwise reviewed and are negative. PAST MEDICAL HISTORY: Patient Active Problem List Diagnosis Date Noted PVC's (premature ventricular contractions) 06/23/2024 Hypertension 04/11/2024 Hyperlipidemia 05/19/2023 Bradycardia 05/19/2023 Aortic valve disorder 04/04/2021 Aneurysm of ascending aorta (CMS/HCC) 04/04/2021 ACTIVE MEDICATIONS: Outpatient Medications Marked as Taking for the 06/23/24 encounter (Office Visit) with Chuckie Samano MD Medication Sig Dispense Refill aspirin 81 mg EC tablet Take 1 tablet (81 mg total) by mouth 1 (one) time each day. furosemide (LASIX) 40 mg tablet Take 1 tablet (40 mg total) by mouth 1 (one) time each day. multivitamin (MULTIPLE VITAMINS ORAL) Take 1 tablet by mouth 1 (one) time each day. omega-3 acid ethyl esters (LOVAZA) 1 gram capsule Take 2 capsules (2 g total) by mouth 1 (one) timeeach day. omeprazole (PriLOSEC) [address] capsule Take 1 capsule (20 mg total) by mouth 1 (one) time each day. sertraline (ZOLOFT) 50 mg tablet Take 1.5 tablets (75 mg total) by mouth 1 (one) time each day. valsartan (DIOVAN) 320 mg tablet Take 1 tablet (320 mg total) by mouth 1 (one) time each day. ALLERGIES: No Known Allergies PHYSICAL EXAM: Vitals: 06/23/24 1055 BP: (!) 142/60 Pulse: 53 SpO2: 99% Weight: 132 kg (292 lb) Height: 1.676 m (66 ) Physical Exam APPEARANCE: Alert and in no acute distress EYES: PERRLA, conjunctiva and sclera normal. NECK: Neck supple, thyroid symmetric and of normal size HEART: RRR with normal S1 and S2, 2/6 systolic murmurs at right upper sternal border, no gallops, no JVD appreciated LUNG: clear to auscultation in all balderas ABDOMEN: Bowel sounds normoactive, soft, non-tender, without organomegaly or palpable masses EXTREMITIES: Extremities warm and well perfused without clubbing, cyanosis, or edema NEURO: Awake, alert and oriented SKIN: Skin color, texture, turgor normal. No rashes or lesions. MUSCULOSKELETAL: Gait normal TESTING: IMPRESSION: 1. Aortic valve disorder 2. Hypertension, unspecified type 3. PVC's (premature ventricular contractions) ASSESSMENT/PLAN: Assessment & Plan Aortic valve disorder Valve function appears normal by echocardiogram and physical exam. Will continue to monitor. Orders: Basic metabolic panel; Future Hypertension, unspecified type Well-controlled. Orders: Lipid panel with reflex to direct LDL; Future PVC's (premature ventricular contractions) PVC burden was quite high but he is asymptomatic. We not able to add a beta- pollo due to baselinebradycardia. Echocardiogram and stress test are reassuring. Will continue to monitor. Will repeat BMP and magnesium. The [facility] team will continue to co-manage this patient following the plan of care as established by my initial visit and as per AHA guidelines for ongoing management and surveillance of aortic valve disorder, and PVCs . This will include medication titration, initiation of appropriate medications andfurther titration, and diagnostic studies to manage this disease process. Thank you for allowing us to participate in the care of this patient. The patient will follow up with Cardiology 6 months CC: @PCP documented in this encounter Plan of Treatment Upcoming Encounters Date Type Department Care Team (Late st Contact Info) Description 12/13/2024 9:50 AM EDT Office Visit [facility] [address] [facility] [address] [place] [address] Chuckie Samano MD [address] [facility] [address] [place] [address] documented as of this encounter Results * Lipid panel with reflex to direct LDL (06/23/2024 11:43 AM EST) Cholesterol 131 0 - 200 mg/dL LAB CHEMISTRY METHOD 06/23/2024 1:32 PM [facility] Triglycerides 59 0 - 150 mg/dL LAB CHEMISTRY METHOD 06/23/2024 1:32 PM [facility] HDL 52 >=40 mg/dL LAB CHEMISTRY METHOD 06/23/2024 1:32 PM [facility] LDL Calculated 67 0 - 100 mg/dL LAB CHEMISTRY METHOD 06/23/2024 1:32 PM [facility] VLDL Cholesterol Jesse 11.8 mg/dL LAB CHEMISTRY METHOD 06/23/2024 1:32 PM [facility] Non HDL Chol. (LDL+VLDL) 79 <145 mg/dL LAB CHEMISTRY METHOD 06/23/2024 1:32 PM [facility] Chol/HDL Ratio 2.5 0.0 - 4.4 LAB CHEMISTRY METHOD 06/23/2024 1:32 PM [facility] Blood Venous blood specimen / Unknown Venipuncture / Unknown 06/23/2024 11:43 AM EST 06/23/2024 12:04 PM EST us Chuckie Samano MD LAB BLOOD ORDERABLES Final Resul t [facility] [address] [place] [address], * (ABNORMAL) Basic metabolic panel (06/23/2024 11:43 AM EST) Sodium 139 133 - 145 mmol/L LAB CHEMISTRY METHOD 06/23/2024 1:42 PM [facility] Potassium 4.1 3.5 - 5.5 mmol/L LAB CHEMISTRY METHOD 06/23/2024 1:42 PM [facility] Chloride 106 96 - 110 mmol/L LAB CHEMISTRY METHOD 06/23/2024 1:42 PM [facility] CO2 30 21 - 32 mmol/L LAB CHEMISTRY METHOD 06/23/2024 1:42 PM [facility] Anion Gap 3 3 - 11 LAB CHEMISTRY METHOD 06/23/2024 1:42 PM [facility] Glucose 101(H) 70 - 100 mg/dL LAB CHEMISTRY METHOD 06/23/2024 1:42 PM [facility] BUN 27(H) 5 - 25 mg/dL LAB CHEMISTRY METHOD 06/23/2024 1:42 PM [facility] Creatinine 1.11 0.70 - 1.30 mg/dL LAB CHEMISTRY METHOD 06/23/2024 1:42 PM [facility] eGFR 71 >=60 mL/min/1. 73m2 LAB CHEMISTRY METHOD 06/23/2024 1:42 PM [facility] Comment:Calculation based on the??Chronic Kidney Disease Epidemiology Collaboration (CKD-EPI) equation refit??without adjustment for race. BUN/Creatinine Ratio 24.3 LAB CHEMISTRY METHOD 06/23/2024 1:42 PM EST [facility] Calcium 9.1 8.5 - 10.5 mg/dL LAB CHEMISTRY METHOD 06/23/2024 1:42 PM EST [facility] Blood Venous blood specimen / Unknown Venipuncture / Unknown 06/23/2024 11:43 AM EST 06/23/2024 12:04 PM EST us Chuckie Samano MD LAB BLOOD ORDERABLES Final Resul t [facility] [address] [place] [address], documented in this encounter Visit Diagnoses Diagnosis Aortic valve disorder- Primary Aortic valve disorders Hypertension, unspecified type PVC's (premature ventricular contractions) Other premature beats documented in this encounter Discontinued Medications Medication Sig Discontinue Reason Start Date End Da te magnesium, amino acid chelate, 133 mg tablet Take 1 tablet (133 mg total) by mouth 2 (two) times a day. 06/23/2024 06/23/2024 documented as of this encounter Care Teams Blasting Contract Man Relationship Specialty Start Date End Date Adia Medina MD [address] [place] [address] PCP - General Internal Medicine 05/10/24 documented as of this encounter
--- OUTSIDE RECORDS SUMMARY | 2024-07-10 09:03 | XMS_ITS | Clinical Summary ---
Author Organization [address] [facility] Address [address] [place] [address] Phone Care Team Providers Care Wallpaper Consultant Name Role Phone Adia Medina MD Primary Care Provider [phone] Allergies No known active allergies Medications multivitamin (MULTIPLE VITAMINS ORAL) Take 1 tablet by mouth 1 (one) time each day. Active atorvastatin (LIPITOR) 40 mg tablet Take 1 tablet (40 mg total) by mouth 1 (one) time each day. for 360 days 3 Active furosemide (LASIX) 40 mg tablet Take 1 tablet (40 mg total) by mouth 1 (one) time each day. Active omega-3 acid ethyl esters (LOVAZA) 1 gram capsule Take 2 capsules (2 g total) by mouth 1 (one) time each day. Active omeprazole (PriLOSEC) [address] capsule Take 1 capsule (20 mg total) by mouth 1 (one) time each day. Active sertraline (ZOLOFT) 50 mg tablet Take 1.5 tablets (75 mg total) by mouth 1 (one) time each day. Active valsartan (DIOVAN) 320 mg tablet Take 1 tablet (320 mg total) by mouth 1 (one) time each day. Active aspirin 81 mg EC tablet Take 1 tablet (81 mg total) by mouth 1 (one) time each day. 4 025 Active magnesium, amino acid chelate, 133 mg tablet Take 1 tablet (133 mg total) by mouth 2 (two) times a day. 60 tablet 11 5 025 Discontinued Hospital, Clinic, or Other Facility Administered Medication Ordered Dose Route Frequency Start Date End Date Status perflutren lipid microsphere (DEFINITY) 1.3 mL in sodium chloride 0.9% 8.7 mL injectionIndications:[place] ry artery disease involving [place] coronary artery of [place] heart with unstable angina pectoris (CMS/HCC) 10 mL IV Once 06/15/2024 06/15/2024 Ended Active Problems Problem Noted Date Diagnosed Date PVC's (premature ventricular contractions) 06/23 Assessment & Plan (06/23/2024 12:13 PM EST): PVC burden was quite high but he is asymptomatic. We not able to add a beta- pollo due to baseline bradycardia. Echocardiogram and stress test are reassuring. Will continue to monitor. Will repeat BMP and magnesium. Hypertension 04/11/2024 Assessment & Plan (06/23/2024 12:13 PM EST): Well-controlled. Orders: Lipid panel with reflex to direct LDL; Future Assessment & Plan (04/11/2024 1:50 PM EST): Blood pressure slightly higher today and Dr. Medina increased losartan. He will see her again later this month. Hyperlipidemia 05/19/2023 Overview (03/31/2024): Last Assessment & Plan: He has significant coronary artery calcification. I will switch simvastatin to atorvastatin 40 mg daily. Bradycardia 05/19/2023 Overview (03/31/2024): Last Assessment & Plan: His heart rate was only 45 and he is asymptomatic. Will reduce carvedilol from 9.375 mg to 3.125 mg twice a day. Asked patient to check pulse and blood pressure daily and give me an update in 2 weeks. Aortic valve disorder 04/04/2021 Overview (03/31/2024): Last Assessment & Plan: With normal prosthesis function. Will continue clinical monitoring. Continue endocarditis prophylaxis. Assessment & Plan (06/23/2024 12:13 PM EST): Valve function appears normal by echocardiogram and physical exam. Will continue to monitor. Orders: Basic metabolic panel; Future Assessment & Plan (04/11/2024 1:50 PM EST): Surgical AVR 10 years ago. Continue doing well. By physical exam, valve function appears normal. Will update echocardiogram due to slightly elevated pulmonary arterial systolic pressure. Aneurysm of ascending aorta 04/04/2021 Overview (03/31/2024): Last Assessment & Plan: Ascending aorta is minimally dilated and will follow the size with valve assessment. Encounters Date Type Department Care Team Description 06/23/2024 11:20 AM EST Office Visit [facility] - [address] [place] [address] Chuckie Samano MD Aortic valve disorder (Primary Dx); Hypertension, unspecified type; PVC's (premature ventricular contractions) 06/15/2024 12:30 PM EST Ancillary Procedure [facility] - [address] [place] [address] Coronary artery disease involving [place] coronary artery of [place] heart with unstable angina pectoris ([facility]) 05/10/2024 7:30 AM EST Ancillary Procedure [facility] - [address] [place] [address] Abnormal EKG 04/19/2024 Telephone [facility] - [address] [place] [address] Chuckie Samano MD 04/17/2024 8:00 AM EST Ancillary Procedure [facility] - [address] [place] [address] Frequent PVCs 04/11/2024 7:50 AM EST Office Visit [facility] - [address] [place] [id number] Chuckie Samano MD Coronary artery disease involving [place]en coronary artery of [place]en heart with unstable angina pectoris (CMS/HCC) (Primary Dx); Frequent PVCs; Aortic valve disorder; Hypertension, unspecified type from Last 3 Months Surgical History Surgery Date Site/Laterality Comments OTHER SURGICAL HISTORY 2006 PROCEDURE: [place] PROCTOPLASTY PROLAPSE MUCOUS MEMBRANE KNEE SURGERY 2010 PROCEDURE: HISTORICAL KNEE SURGERY; COMMENT: left HAND SURGERY 2009 PROCEDURE: HISTORICAL HAND SURGERY; COMMENT: left Medical History Medical History Date Comments HTN (hypertension) DX:HTN (hyper tension) Hypercholesteremia DX:Hyperchole steremia Sleep apnea DX:Sleep apnea; COMMENT: on CPAP Arthritis DX:Arthritis CHF (congestive heart failure) (CMS/HCC) DX:CHF (congestive heart failure) ([facility]) Family History Medical History Relation Name Comments Coronary artery disease Father Diabetes Father Other: Father Relation Name Status Comments Father Social History Tobacco Use Types Packs/Day Years Used Date Smoking Tobacco: Never Smokeless Tobacco: Never Alcohol Use Standard Drinks/Week Comments Yes 0.8 (1 standard drink = 0.6 oz p ure alcohol) Sex and Gender Information Value Date Recorded Sex Assigned at Not on file Legal Sex Male 9:44 AM EST Gender Identity Not on file Sexual Orientation Not on file Obstetrics History Last Filed Vital Signs Vital Sign Reading [...] Mass Index 47.13 06/23/2024 10:55 AM EST Plan of Treatment Upcoming Encounters Date Type Department Care Team (Late st Contact Info) Description 12/13/2024 9:50 AM EDT Office Visit [facility] - [facility] [address] [facility] [address] [place] [address] Chuckie Samano MD [address] [place] [address] Health Maintenance Due Date Last Done Comments Colorectal Cancer Screening: Colonoscopy 04/26/2022 Depression Screening 04/26/2022 Falls Risk Assessment 04/26/2022 Hepatitis C Screening 04/26/2022 Social Influencers of Health Screening 04/26/2022 Medicare Annual Wellness Visit 07/13/2023 07/13/2022 Hypertension/CHF/CAD Annual BMP Blood Test 06/23/2025 06/23/2024 DTaP,Tdap,and Td Vaccines (3 - Td or Tdap) 03/13/2026 03/13/2016, 05/15/2010 Cholesterol Screening (Lipid Panel) 06/23/2029 06/23/2024 Zoster Vaccines Completed 07/16/2018, 02/28/2018 RSV Immunization Patients 60+ Years Old Completed 04/20/2023 COVID-19 Vaccine Completed 03/13/2024, , 02/18/2022, Additional history exists Influenza Vaccine Completed 03/13/2024, , 01/30/2021, Additional history exists Pneumococcal Vaccine: 50+ Years Completed 04/24/2024, 07/15/2018, 05/13/2016 HIB Vaccines Aged Out No longer eligi ble based on patient's age to complete this topic HPV Vaccines Aged Out No longer eligi ble based on patient's age to complete this topic Hepatitis A Vaccines Aged Out No long er eligible based on patient's age to complete this topic Hepatitis B Vaccines Aged Out No long er eligible based on patient's age to complete this topic IPV Vaccines Aged Out No longer eligi ble based on patient's age to complete this topic MMR Vaccines Aged Out No longer eligi ble based on patient's age to complete this topic Meningococcal ACWY Vaccine Aged Out N o longer eligible based on patient's age to complete this topic Meningococcal B Vacine Aged Out No lo nger eligible based on patient's age to complete this topic RSV Immunization Patients Under 20 months Aged Out No longer eligible based on patient's age to complete this topic Varicella Vaccines Aged Out No longer eligible based on patient's age to complete this topic Procedures Procedure Name Priority Date/Time Associated Diagnosis Comments LIPID PANEL WITH REFLEX TO DIRECT LDL Routine 06/23/2024 11:43 AM EST Hypertension, unspecified type BASIC METABOLIC PANEL Routine 06/23/2024 11:43 AM EST Aortic valve disorder TRANSTHORACIC ECHOCARDIOGRAM (TTE) COMPLETE W/ CONTRAST Routine 06/15/2024 1:23 PM EST Coronary artery disease involving [place] coronary artery of [place] heart with unstable angina pectoris (CMS/HCC) NM LEXISCAN STRESS TEST W/ MYOCARDIAL PERFUSION Routine 05/10/2024 10:22 AM EST Abnormal EKG CARDIAC HOLTER MONITOR (REPORT GENERATED IN HOUSE) Routine 04/17/2024 7:45 AM EST Frequent PVCs ECG 12-LEAD Routine 04/11/2024 7:58 AM EST Coronary artery disease involving [place] coronary artery of [place]en heart with unstable angina pectoris (CMS/HCC) from Last 3 Months Results * Lipid panel with reflex to [...] 11:43 AM EST 06/23/2024 12:04 PM EST Chuckie Samano MD LAB BLOOD ORDERABLES Final Resul t [facility] [address] [place] [address], [place] [phone] * (ABNORMAL) Basic metabolic panel (06/23/2024 11:43 AM EST) Pathologist [facility] Sodium 139 133 - 145 mmol/L LAB [...] LAB CHEMISTRY METHOD 06/23/2024 1:42 PM EST [facility] Calcium 9.1 8.5 - 10.5 mg/dL LAB CHEMISTRY METHOD 06/23/2024 1:42 PM EST [facility] Blood Venous blood specimen / Unknown Venipuncture / Unknown 06/23/2024 11:43 AM EST 06/23/2024 12:04 PM EST us Chuckie Samano MD LAB BLOOD ORDERABLES Final Resul t [facility] [address] [place] [address], [place] [phone] * (ABNORMAL) TRANSTHORACIC ECHOCARDIOGRAM (TTE) COMPLETE W/ CONTRAST (06/15/2024 1:23 PM EST) Left Atrium Minor [place] 6.6 cm CV PACS Left Atrium Major [place] 7.2 cm CV PACS LA Area Sys [...] Volume 91 mL CV PACS MV Deceleration [place] 4.3 m/s2 CV PACS E Wave Deceleration [...] Definity contrast was given to enhance imaging. us Chuckie Samano MD CV ECHO PROCEDURES Final Result * NM LEXISCAN STRESS TEST W/ MYOCARDIAL PERFUSION (05/10/2024 10:22 AM EST) Target HR 127 bpm CV PACS STRESS BSA 2.47 m2 CV PACS STRESS TID 1.10 CV PACS STRESS Nuc Stress EF 66 % CV PAC S STRESS Nuc Rest EF 68 % CV PACS STRESS Baseline HR 54 bpm CV PACS STRESS Baseline SBP 131 mmHg CV PACS STRESS Baseline DBP 92 mmHg CV PACS STRESS Peak HR 81 bpm CV PACS STRESS Peak SBP 142 mmHg CV PACS STRESS Peak DBP 92 mmHg CV PACS STRESS Rate Pressure Product 11,502.0 mmHg*bpm CV PACS STRESS Percent HR 54 % CV PACS STRESS Exercise/inject ion duration (min) 1 min CV PACS STRESS Exercise/inject ion duration (sec) 10 [address] CV PACS STRESS ST Depression (mm) 0 mm CV PACS STRESS Anatomical Region Laterality Modality Nuclear Medicine Impressions 05/11/2024 1:49 PM EST 1. ??Abnormal. ??Abnormal pharmacological nuclear stress test. 2. Symptoms: No chest pain during the regadenoson infusion 3. Stress ECG: No ischemic ECG changes with the regadenoson infusion 4. Myocardial perfusion imaging: - Myocardial perfusion imaging revealed a small in size and very mild intensity in reversible perfusion defect in the apical anteroseptal wall, suggestive of ischemia - Myocardial perfusion imaging revealed a small in size and moderate in intensity fixed defect in the basal inferolateral wall, suggestive of an infarct. 5. TID was normal at 1.10. 6. Gated images revealed normal LV wall motion and thickening; with a normal LV systolic function (LVEF 68%). 7. ??There is evidence of coronary artery calcification in the LAD which was noted on the CT scan images obtained for attenuation correction. Narrative 05/11/2024 1:49 PM EST Stress Findings A pharmacological stress test was performed using regadenoson, 0.4 mg IV over 10-15 seconds, followed by radiopharmacological injection 10 seconds post infusion. Total stress time was 1 min and 10 sec. Low level exercise was used during pharmacological stress test. ECG Indication: 69-year-old male has been experiencing frequent PVCs. Risk factors include: Aortic stenosis status post AVR, hypertension, morbid obesity, obstructive sleep apnea, and thoracic aortic aneurysm. The ECG shows sinus bradycardia with a PVC. Arrhythmias during stress: rare premature atrial contractions (PACs), frequent premature ventricular contractions (PVCs) . There is no ST segment changes during stress. The result of the stress ECG was negative for ischemia. Nuclear Study Quality Study technique: MPI, SPECT, multi, rest and stress, 1 day. Overall image quality is excellent. CT attenuation correction was utilized. Diaphragmatic attenuation artifact is present. No radiopharmaceutical dose was extravasated. The time from injection to rest imaging is 35 mins. The time from injection to stress imaging is 50 mins. Perfusion Defect Conclusion There is no evidence of transient ischemic dilation (TID). Stress Function Comments Stress ejection fraction is 66%. Rest Function Comments Resting ejection fraction was 68%. Stress Combined Conclusion SCAN FINDINGS: Nuclear imaging of the left ventricle reveals normal cavity size at rest with no change with stress imaging. Myocardial perfusion imaging of the left ventricle revealed a small in size and very mild intensity reversible perfusion defect in the apical anteroseptal wall. There is also a large in size and moderate in intensity mixed reversible/fixed defect involving the basal to apical inferior wall, basal inferoseptal wall, and basal inferolateral wall. The raw images demonstrated the presence of diaphragmatic attenuation. CT attenuation correction was applied to the study which mostly corrects the is mixed perfusion defect in the inferior/inferoseptal/inferolateral wall. Nevertheless, even attenuation correction was applied, there is a persistence of a small in size and moderate intensity fixed perfusion defect in the basal inferolateral wall. Gated SPECT imaging was performed which demonstrated normal LV function and thickening with a calculated LVEF of 68% CT Findings There is evidence of coronary artery calcification in the LAD which was noted on the CT scan images obtained for attenuation correction. us Chuckie Samano MD CV STRESS PROCEDURES Final Resul t * CARDIAC HOLTER MONITOR (REPORT GENERATED IN HOUSE) (04/17/2024 7:45 AM EST) Anatomical Region Laterality Modality Cardiac Diagnost ic Narrative 04/19/2024 10:53 AM EST ?Normal sinus rhythm and sinus bradycardia with frequent symptomatic PVCs. ??PVC burden 10.2%. [facility] [address] [place] [address], [id number] [place] [id number] TEL: FAX: Type of Test: 24 Hour Holter Monitor Date of Test: 04/17/2024 Ordering Provider: Chuckie Samano MD Reason for Test: Frequent PVCs PVCA Application Architect Manager Findings: ?? 1: Predominant rhythm was Normal Sinus Rhythm with Sinus Bradycardia. 2: Heart rate range was 45-74 BPM with an average of 56 BPM. Total time in Sinus Bradycardia: 16 hrs 36 mins. 3: Rare PACs and atrial pairs. 4: Frequent PVCs and ventricular trigeminy. Occasional ventricular bigeminy. Rare couplets. PVC [place] was 10.2%. 5: No significant pause, longest R-R was 1.4 seconds at 4:20 AM. 6: Diary returned with an episode of dizziness noted. EKG at that time showed Sinus Bradycardia with an episode of ventricular trigeminy and heart rate of 57 BPM. Impression: Normal sinus rhythm and sinus bradycardia with an average heart rate of 56 bpm. ??Frequent PVCs with a left ventricular morphology. ?? PVC burden 10.2%. Chuckie Samano MD CV CARDIAC SERVICES PROCEDURES F inal Result * ECG 12 lead (04/11/2024 7:58 AM EST) Ventricular Rate ECG 55 BPM GEMUSE Atrial Rate 55 BPM GEMUSE P-R Interval 164 ms GEMUSE QRS Duration 100 ms GEMUSE Q-T Interval 436 ms GEMUSE QTc 417 ms GEMUSE P Wave [place] 59 degrees GEMUSE R [place] 68 degrees GEMUSE T [place] 66 degrees GEMUSE ECG Interpretation Sinus bradycardia Otherwise normal ECG When compared with ECG of 03-JUL-2020 10:11, Premature ventricular complexes are no longer Present Confirmed by Kasia SAMANO YUFENG ([id number]) on 04/11/2024 8:03:05 AM GEMUSE 04/11/2024 7:58 AM EST 04/11/2024 8:03 AM EST Chuckie Samano MD ECG ORDERABLES Final Result GEMUSE from Last 3 Months Insurance MEDICARE [facility] Care Teams Wallpaper Consultant Relationship Specialty Start Date End Date Adia Medina MD [address] [place] [phone] PCP - General Internal Medicine 05/10/24
[2024-07-10 09:11] VITALS: BP 136/70; PULSE 56; RESP 18; TEMP 36.8; O2SAT 96; BMI 44.3
--- NOTE | 2024-07-10 09:11 | A.OFFVIS_ITS ---
Intake Vital Signs 07/10/24 09:11 Height 5 ft 7 in Weight 283 lb BMI 44.3 BP 136/70 Blood Pressure Location Lt brachial Position Sitting Respiration 18 Pulse 56 Pulse Source Pulse Oximeter Temp 98.3 F Temp Source Oral Pulse Oximetry (%) 96 Oxygen Delivery Method Room Air Intake Visit Reasons: SWV [id number] Allergies carvedilol [From Coreg] Adverse Reaction (Intermediate, Verified 07/10/24 09:16) bradycardia Medication List - Last Reconciled 07/10/24 by Adia Medina MD aspirin 81 mg PO DAILY atorvastatin 40 mg PO BEDTIME CPAP (CPAP Machine/Device) auto pap 6-16 cm CPAP (CPAP Machine/Device) auto pap with presure 6-16 cm flu vacc [id number] 6mos up(PF) mL IM furosemide 40 mg PO QAM [id number]-[id number]-evmiyuw-bpperw 119-18-134-150 mcg (Centrum Minis Men 50 Plus) tabs PO omega 7-omt-cnq-fish oil 1,200 (144-216) mg (Fish Oil) caps PO omeprazole 20 mg PO QAM scopolamine base 1 patch transdermal Q3D PRN sertraline 75 mg (1.5 x 50 mg) PO DAILY valsartan 320 mg PO DAILY HPI SWV [id number] HPI Details Initiated the conversation about Advanced Directives. Advanced Directives help? patients prepare for current and future decisions about their medical treatment? and place of care. Discussed with patient that it is a process where a patients? current condition and prognosis are reviewed, their wishes for information? regarding their illness are elicited, and likely medical dilemmas are presented? and options discussed. The form can be amended as needed, reviewed yearly and? make changes as needed IPPE/AWV ? year old presents? for her ? Annual? Wellness Visit, initial visit.? Medical / Social History Reviewed? Past Medical History ?Yes? . ? [place]? of Care / Care Team list updated ?Yes . ? Surgical/Hospitalization? History ?Yes . ? Current Medications? (including OTC and supplements) ?Yes . ? Family History ?Yes? . ? Tobacco? Control form ?Yes . ? AUDIT-C (Alcohol use) form? ?Yes . ? Illicit drug use in Social? History ?Yes . ? Current diagnosis of? depression? ?No ? Appropriate PHQ2/PHQ9? completed ?Yes . ? Data entered by ?Medical? Banquet Set Up Person and reviewed by provider ? Fall Risk ? Fall? History? Have you had any falls with? injury in the past year? ?No . ? Have you had two or more? falls in the past year? ?No . ? Fall Risk Assessment: ?No? falls in the past year . ? HRA filled out by? the patient, reviewed by Provider and scanned. ? IPPE/AWV ? Balance? [place]? ?Yes . ? Tandem? walk ?Yes . ? Walk and? Turn ?Yes . ? Rise from? sit to stand ?Yes . ?Vision? Corrective? lens ?Yes ? Vision? screen ? Up-to-date, has an appointment [] for vision? screening and glaucoma screening ?Hearing? Whisper? test ?pass .? Initiated the conversation about Advanced Directives. Advanced Directives help? patients prepare for current and future decisions about their medical treatment? and place of care. Discussed with patient that it is a process where a patients? current condition and prognosis are reviewed, their wishes for information? regarding their illness are elicited, and likely medical dilemmas are presented? and options discussed. The form can be amended as needed, reviewed yearly and? make changes as needed Written? Plan?Completed. See Patient? Documents. [facility] Medical History Annual physical exam Osteoarthritis of right knee Ascending aorta dilation Normal colonoscopy Hyperglycemia HTN (hypertension) Liver lesion, right lobe DAQUAN on CPAP Lower extremity edema Obesity Hyperlipidemia Surgical History H/O colonoscopy Status post aortic valve replacement with bioprosthetic valve No pertinent past surgical history Family History Father Kidney disease Heart problem Diabetes mellitus Mother No problems noted. Social History Housing: House Alcohol intake: current Alcohol intake frequency: a few times a week Patient Tobacco Use Status: Never used Tobacco e-Cigarette/Vaping Use: Never Used service: No Current occupational status: employed Cognitive needs: No Hearing needs: No Vision needs: Yes Questionnaire Medicare Wellness Checkup [age] What gender do you identify with?: male During the past 4 weeks, how much have you been bothered by emotional problems such as feeling anxious, depressed, irritable, sad or downhearted, and blue?: not at all During the past 4 weeks, has your physical & emotional health limited your social activities with family, friends, neighbors, or groups?: not at all During the past 4 weeks, how much bodily pain have you generally had?: very mild pain During the past 4 weeks, was someone available to help you if you needed & wanted help?: yes, as much as I wanted During the past 4 weeks, what was the hardest physical activity you could do for at least 2 minutes?: moderate Can you get to places out of walking distance without help? (For eg., can you travel alone on buses, taxis or drive your car?): Yes Can you go shopping for groceries or clothes without someone's help?: Yes Can you prepare your own meals?: Yes Can you do your housework without help?: Yes Because of any health problems, do you need the help of another person with your personal care needs such as eating, bathing, dressing or getting around the house?: No Can you handle your own money without help?: Yes During the past 4 weeks, how would you rate your health in general?: good During the past 4 weeks how have things been going for you?: pretty well Are you having difficulties driving your car?: no Do you always fasten your seat belt when you are in a car?: yes, usually During past 4 weeks, have you been bothered by the following: never: Sexual problems?, Trouble eating well?, Teeth or denture problems? and Problems using the telephone? and seldom: Falling or dizzy when standing up and Tiredness or fatigue? Have you fallen 2 or more times in the past year?: No Are you afraid of falling?: No Are you a smoker?: no During the past 4 weeks, how many drinks of wine, beer, or other alcoholic beverages did you have?: 2-5 drinks per week Do you exercise for about 20 minutes 3 or more times a week?: yes, most of the time Have you been given information to help with the following?: no: Hazards in your house that might hurt you? and no: Keeping track of your medications? How often do you have trouble taking medicines the way you have been told to take them?: I always take medicine as prescribed How confident are you that you can control & manage most of your health problems?: very confident What is your race?: White Mini Mental State Exam (MMSE) Orientation What is the (year) (season) (date) (day) (month)?: year, season, date, day and month Where are we (state) (county) (town or city) (hospital) (floor)?: state, county, town or city, hospital/clinic and floor Registration Name of 3 unrelated objects clearly and slowly, then ask patient to repeat all 3 of them. (1st repeat determines score. Make sure they can repeat all three): object 1, object 2 and object 3 Attention & Calculation (CHOOSE ONE) Spell WORLD backwards (DLROW): 5 letters Recall Ask patient to repeat the 3 items from question #3.: object 1, object 2 and object 3 Language Show patient a wristwatch & ask what it is. Repeat for pencil.: watch and pencil Ask the patient to repeat the phrase 'No ifs, ands, or buts' after you.: correct Ask the patient to 'take a piece of paper with their right hand' 'fold paper in half' 'place paper on floor': take paper in right hand, fold paper in half and place paper on floor Print the sentence 'CLOSE YOUR EYES' on a piece. If patient actually closes eyes then score.: followed written direction Give patient a blank piece of paper & ask to write a sentence. Score if it contains a noun & verb.: sentence contains subject and verb Score Score: 29 PHQ-9 Over the last 2 weeks, how often have you been bothered by any of the following problems? 1. Little interest or pleasure in doing things: not at all 2. Feeling down, depressed, or hopeless: not at all 3. Trouble falling or staying asleep, or sleeping too much: not at all 4. Feeling tired or having little energy: not at all 5. Poor appetite or overeating: not at all 6. Feeling bad about yourself - or that you are a failure or have let yourself or your family down: not at all 7. Trouble concentrating on things, such as reading the newspaper or watching television: not at all 8. Moving or speaking so slowly that other people could have noticed. Or the opposite - being so fidgety or restless that you have been moving around a lot more than usual: not at all 9. Thoughts that you would be better off or of hurting yourself in some way: not at all Total score: 0 Depression Screening Interpretation: Negative Depression Screening Done: Yes 45815 - PHQ-9 Billing: Yes Source: Developed by Drs. Chao Rodriguez, Deanna Tamayo, Luis Angel Lehman and colleagues, with an educational karla from [employer]. Review of Systems Const All systems reviewed & are unremarkable except as noted in HPI and below Eyes Reports no additional complaints ENT Reports no additional complaints Card Reports no additional complaints Resp Reports no additional complaints GI Reports no additional complaints Reports no additional complaints Physical Exam Vital Signs: Last Vital Signs Temp 98.3 F 07/10/24 09:11 Pulse 56 07/10/24 09:11 Resp 18 07/10/24 09:11 BP 136/70 07/10/24 09:11 Pulse Ox 96 07/10/24 09:11 Oxygen Delivery Method Room Air 07/10/24 09:11 BMI result Body Mass Index 44.3 Const General: no acute distress and acute distress HEENT Head: Yes normal to inspection Neck Neck: Yes no lymphadenopathy and Yes supple Resp Effort & Inspection: normal respiratory effort Auscultation: clear to auscultation bilaterally Cardio Rhythm: regular rhythm Heart sounds: S1 normal heart sound present and S2 normal heart sound present GI Inspection: Yes normal to inspection Palpation (GI): Soft to palpation Percussion: Yes normal to percussion Auscultation: normal bowel sounds Extrem General: Yes no clubbing, cyanosis or edema Assessment & Plan Assessment & Plan (1) Ascending aorta dilation: Comment: 4.0 cm, Echo 07/2019, 2021 unchanged, Echo q 2 yrs, nuclear stress and Echo 05/2023 [facility] Dr. Samano f/u PVC q 6 months Code(s): I77.810 - Thoracic aortic ectasia Plan: Follow-up with the Cardiology at [facility] (2) Hyperlipidemia: Code(s): E78.5 - Hyperlipidemia, unspecified Plan: Continue statin (3) HTN (hypertension): Code(s): I10 - Essential (primary) hypertension Plan: Continue current medications (4) Annual physical exam: Code(s): Z00.00 - Encounter for general adult medical examination without abnormal findings Plan: Well-balanced diet regular physical activity weight loss discussed with the patient. He had a blood work at [facility] ordered by water chemist and results will be obtained. Continue sertraline for chronic anxiety. Return in 1 year or p.r.n. Orders: Orders Comprehensive [place]. Panel Fast 1 Year E78.5 - Hyperlipidemia, unspecified, I10 - Essential (primary) hypertension, Z00.00 - Encounter for general adult medical examination without abnormal findings Complete Blood Count Auto Diff 1 Year E78.5 - Hyperlipidemia, unspecified, I10 - Essential (primary) hypertension, Z00.00 - Encounter for general adult medical examination without abnormal findings PSA,Total (Free>4and<10) 1 Year E78.5 - Hyperlipidemia, unspecified, I10 - Essential (primary) hypertension, Z00.00 - Encounter for general adult medical examination without abnormal findings Lipid Panel 1 Year E78.5 - Hyperlipidemia, unspecified, I10 - Essential (primary) hypertension, Z00.00 - Encounter for general adult medical examination without abnormal findings UA w Microscopic 1 Year E78.5 - Hyperlipidemia, unspecified, I10 - Essential (primary) hypertension, Z00.00 - Encounter for general adult medical examination without abnormal findings Quality Reporting (2019) Depression/Bipolar (159/160/161/177) PHQ-9: Total score: 0 Coding Level of Care Code Medicare Subsequent (G0439) Diagnoses Ascending aorta dilation I77.810 Hyperlipidemia E78.5 HTN (hypertension) I10 Annual physical exam Z00.00 CPT Codes Advance Care Planning - Advance Care Planning discussion: On file, no changes ([id number]) Advance Care Planning - Time spent: 1-15 minutes, on File ([id number]) Additional Codes PHQ-9 - 07935 - PHQ-9 Billing: Yes ([id number]) Advance Care Planning Advance Care Planning discussion: On file, no changes Forms completed: Health Care Proxy Time spent: 1-15 minutes, on File Did not discuss due to Cultural/Spiritual beliefs: Yes
== END 2024-07-10 09:41 | disposition home or self-care (01) ==
PROVIDERS: PCP Internal Medicine; Visit Provider Internal Medicine
DX: Z00.00 Encounter for general adult medical examination without abnormal findings (principal); I77.810 Thoracic aortic ectasia; E78.5 Hyperlipidemia, unspecified; I10 Essential (primary) hypertension

== ENCOUNTER → 2024-07-10 08:59 | Outpatient (BNVA) | payer MEDICARE, SELFPAY | PROVIDERS: PCP Internal Medicine; Visit Provider Internal Medicine | DX: Z00.00 Encounter for general adult medical examination without abnormal findings (principal); I77.810 Thoracic aortic ectasia; E78.5 Hyperlipidemia, unspecified; I10 Essential (primary) hypertension | CPT/HCPCS: 96127 ==